=== PATIENT | male | born 1935 | race Hispanic/Latino ===

== ENCOUNTER 2018-03-03 20:01 | Emergency (ER) | payer MEDICARE, BC ==
[~2018-03-03] VITALS: Ht 165.1 cm; Wt 81.2 kg
[~2018-03-03 20:01] MED LIST: AMLODIPINE BESYL5 MG PO; ASPIRIN81 MG PO; ATORVASTATIN CA20 MG PO; CLOPIDOGREL75 MG PO; CRESTOR20 MG PO; FAMOTIDINE20 MG PO; FUROSEMIDE40 MG PO; HYDRALAZINE HCL25 MG PO; ISORDIL40 MG PO; LISINOPRIL10 MG PO; MAGNESIUM OXID400 MG PO; METOPROLOL TART25 MG PO; PAROXETINE HCL20 MG PO; POTASSIUM CHLO10 ME1 PO; PRAZOSIN HCL2 MG PO; QUETIAPINE FUMA25 MG PO; RISPERIDONE0.5 MG PO; SENEXON-S TABL1 EACH PO; SERTRALINE HCL50 MG PO; ULTRAM 50MG50 MG PO
[2018-03-03] MEDS ORDERED: SODIUM CHLORIDE 0.9% 1000ML 1,000 ML IV STA (20:07)
[2018-03-03] MEDS ORDERED: PANTOPRAZOLE 40 MG 10ML VIAL IV STA (20:07)
[2018-03-03] MEDS ORDERED: SODIUM CHLORIDE 0.9% 1000ML 1,000 ML ONE (20:10)
[2018-03-03] MEDS ORDERED: ACETAMINOPHEN 1000 MG/100 ML 100 ML IV ONE (20:10)
[2018-03-03 20:26] LABS: BASOPHILS % 0.1 % (0.0-1.0); HEMATOCRIT 37.4 % (38.2-49.6); HEMOGLOBIN 12.8 g/dL (14.0-18.0); LYMPHOCYTES # (AUTO) 0.2 (1.0-3.2); LYMPHOCYTES % 1.7 % (18.0-39.1); MEAN CORPUSCULAR HEMOGLOBIN 28.4 pg (28-32); MEAN CORPUSCULAR HGB CONC 34.2 g/dL (31-35); MEAN CORPUSCULAR VOLUME 83.1 fL (81-99); MONOCYTES # (AUTO) 0.6 (0.2-0.8); MONOCYTES % 4.9 % (4.4-11.3); NEUTROPHILS # (AUTO) 10.7 (2.1-6.9); NEUTROPHILS % 92.5 % (38.7-80.0); PLATELET COUNT 121 x10e3/uL (140-360); RED CELL DISTRIBUTION WIDTH 13.8 % (11.7-14.4)
[2018-03-03] MEDS ORDERED: ACETAMINOPHEN 1000 MG/100 ML IV PRN (20:30)
[2018-03-03 20:37] LABS: INR 1.04; PROTHROMBIN TIME 14.5 seconds (11.9-14.5)
[2018-03-03 20:38] LABS: PARTIAL THROMBOPLASTIN TIME 30.8 seconds (23.8-35.5)
[2018-03-03 20:48] LABS: ALANINE AMINOTRANSFERASE 41 IU/L (0-55); ALBUMIN 3.5 g/dL (3.5-5.0); ALBUMIN/GLOBULIN RATIO 1.2 (0.8-2.0); ALKALINE PHOSPHATASE 71 IU/L (40-150); AMYLASE 31 U/L (25-125); ANION GAP 12.8 mmol/L (8-16); BLOOD UREA NITROGEN 14 mg/dL (7-26); BUN/CREATININE RATIO 12 (6-25); CALCIUM 9.3 mg/dL (8.4-10.2); CARBON DIOXIDE 24 mmol/L (22-29); CHLORIDE 107 mmol/L (98-107); CREATINE KINASE 69 IU/L (30-200); CREATININE, SERUM 1.15 mg/dL (0.72-1.25); EST GLOMERULAR FILTRATION RATE > 60 ML/MIN (60-); GLUCOSE 128 mg/dL (74-118); LIPASE 14 U/L (8-78); MAGNESIUM 1.5 MG/DL (1.3-2.1); POTASSIUM 3.8 mmol/L (3.5-5.1); SODIUM 140 mmol/L (136-145)
[2018-03-03 20:53] LABS: B-TYPE NATRIURETIC PEPTIDE2 193.9 pg/mL (0-100)
[2018-03-03 21:08] LABS: THYROID STIMULATING HORMONE 0.782 uIU/mL (0.350-4.940)
[2018-03-03] MEDS ORDERED: VANCOMYCIN 1GM/NS 250 ML 250 ML IV ONE (21:30)
[2018-03-03] MEDS ORDERED: CEFEPIME HCL 2 GM VIAL IV SCH (21:30)
[2018-03-03 21:35] LABS: NEUTROPHILS % (MANUAL) 94 % (40-74); PLATELET ESTIMATE SLIGHTLY DECREASED; PLATELET MORPHOLOGY COMMENT NORMAL; RBC MORPHOLOGY COMMENT NORMAL
[2018-03-03 21:39] LABS: LYMPHOCYTES % (MANUAL) 1 % (19-48); MONOCYTES % (MANUAL) 5 % (3.4-9.0)
[2018-03-03 21:40] LABS: BILIRUBIN,URINE NEGATIVE (NEGATIVE); CLARITY,URINE CLEAR (CLEAR); COLOR,URINE YELLOW (YELLOW); KETONES,URINE NEGATIVE (NEGATIVE); LEUKOCYTE ESTERASE ,URINE NEGATIVE (NEGATIVE); NITRITE,URINE NEGATIVE (NEGATIVE); PROTEIN,URINE DIPSTICK NEGATIVE (NEGATIVE); URINE UROBILINOGEN 0.2 mg/dL (0.2 - 1)
[2018-03-03] MEDS ORDERED: CEFEPIME HCL 2 GM VIAL IV ONE (21:45)
--- NOTE | 2018-03-03 21:45 | Diagnostic Imaging Report ---
EXAMINATION: CHEST SINGLE (PORTABLE) INDICATION: Fever, sepsis COMPARISON: 11/26/2014 FINDINGS: TUBES and LINES: None. LUNGS: Lungs are well inflated. Lungs are clear. There is no evidence of pneumonia or pulmonary edema. PLEURA: No pleural effusion or pneumothorax. HEART AND MEDIASTINUM: Patient is status post CABG procedure. There are atherosclerotic calcifications within the aorta. BONES AND SOFT TISSUES: No acute osseous lesion. Soft tissues are unremarkable. UPPER ABDOMEN: No free air under the diaphragm. IMPRESSION: No acute thoracic abnormality. Signed by: Dr. Alexis Matute M.D. on 03/03/2018 9:42 PM
[2018-03-03 21:46] LABS: BACTERIA,URINE RARE /HPF; EPITHELIAL CELLS,URINE RARE /LPF; RBC,URINE 0-5 /HPF (0-5)
--- NOTE | 2018-03-03 21:52 | Diagnostic Imaging Report ---
Examination: CT CERVICAL SPINE WITHOUT CONTRAST HISTORY:Neck injury and pain. Fall. COMPARISON:02/17/[address] TECHNIQUE: Multidetector helical axial images were obtained without contrast from the foramen magnum to T1. Coronal and sagittal reformatted images were done. Bone and soft tissue windows were evaluated. Dose modulation, iterative reconstruction, and/or weight based adjustment of the mA/kV was utilized to reduce the radiation dose to as low as reasonably achievable. FINDINGS: Alignment:Normal alignment and lordosis. Vertebrae: Normal height and density. No acute fracture, infection or neoplasm. Disc space heights: Normal height. Caliber of spinal canal: Developmentally normal. Posterior fossa and craniocervical junction: Foramen magnum patent. No Chiari 1 malformation. Soft tissues: Left carotid artery stent. Degenerative changes: Unchanged diffuse disc osteophyte complex at C6-C7 with severe bilateral foramina narrowing. No canal stenosis. The remaining levels demonstrate no disc bulge/ herniation or canal stenosis. IMPRESSION: No new acute abnormalities when compared to prior cervical spine CT dated 02/17/2017. Signed by: Dr. Mariah Harvey M.D. on 03/03/2018 9:49 PM
--- NOTE | 2018-03-03 21:56 | Diagnostic Imaging Report ---
Examination: CT head without contrast Clinical Indication: Fall; head injury. Technique: Transaxial noncontrast images from the skull base through the vertex were obtained. Sagittal and coronal reformatted images were done. Dose modulation, iterative reconstruction, and/or weight based adjustment of the mA/kV was utilized to reduce the radiation dose to as low as reasonably achievable. Comparison: 02/17/[address] Findings: Scalp/skull: No abnormalities. Extra-axial spaces: No masses. No fluid collections. Brain sulci: Moderate volume loss. Ventricles: No hydrocephalus. Parenchyma: There are mild confluent areas of low-attenuation within subcortical and periventricular white matter, nonspecific, but could represent microvascular ischemic disease. 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 Punctate parenchymal calcification at the left superior parietal lobule, secondary to remote infection. No masses, hemorrhage, or acute or chronic cortical based vascular insults. Suprasellar region: No abnormalities. Craniocervical junction: The foramen magnum is patent. No Chiari one malformation. Incidental findings: Atherosclerotic calcification of the cavernous and supraclinoid internal carotid arteries. Impression: No new acute intracranial finding when compared to prior head CT dated 02/17/2017. Signed by: Dr. Mariah Harvey M.D. on 03/03/2018 9:53 PM
[2018-03-03 22:00] LABS: INFLUENZAE A&B ANTIGEN (RAPID) NEGATIVE (NEGATIVE); STREPTOCOCCUS GRP A ANTIGEN POSITIVE (NEGATIVE)
[2018-03-03] MEDS ORDERED: PENICILLIN G BENZATHINE LA 1.2 MU TBX IM STA (22:03)
[2018-03-03 22:16] VITALS: BP 134/69
== END 2018-03-03 23:38 | disposition home or self-care (01) ==
LOC: ER 20:01
DX: R50.9 Fever, unspecified (principal); R41.0 Disorientation, unspecified; J02.0 Streptococcal pharyngitis; Z87.891 Personal history of nicotine dependence
CPT/HCPCS: 36415; 70450; 71045; 72125; 80053; 81001; 82140; 82150; 82550; 82553; 83518; 83605; 83690; 83735; 83880; 84443; 84484; 85025; 85610; 85730; 87040; 87086; 87186; 87400; 93005; 96365; 96372; 96374; 99284; J0561; J0692; J3370; J7030

== ENCOUNTER 2018-03-15 14:47 | Emergency (ER) | payer MEDICARE, BC ==
[~2018-03-15] VITALS: Ht 165.1 cm; Wt 81.2 kg
--- OUTSIDE RECORDS SUMMARY | 2018-03-15 14:49 | XMS REPORT | Clinical Summary ---
Author Author [facility] Organization [facility] Address Unknown Phone Unavailable Care Team Providers Care Research Investigator Name Role Phone Christian Tanner MD PCP Allergies No Known Allergies Current Medications Prescription Sig. Disp. Refills Start End Date Status Date amLODIPine (NORVASC) 10 Take 10 mg by mouth Active mg tablet daily. lisinopril Take 40 mg by mouth Active (PRINIVIL,ZESTRIL) 40 mg daily. tablet clopidogrel (PLAVIX) 75 Take 75 mg by mouth Active mg tablet daily. aspirin (ECOTRIN) 81 MG Take 81 mg by mouth Active enteric coated tablet daily. senna (SENOKOT) 8.6 mg Take 1 tablet by mouth Active tablet daily. cyanocobalamin 1000 MCG Take 1,000 mcg by mouth Active tablet daily. atorvastatin (LIPITOR) 20 Take 20 mg by mouth Active MG tablet nightly. Default OP ins sertraline (ZOLOFT) 50 MG Take 50 mg by mouth Active tablet nightly. prazosin (MINIPRESS) 2 MG Take 2 mg by mouth Active capsule nightly. cholecalciferol, vitamin Take 4,000 Units by mouth Active D3, (VITAMIN D3) 2,000 daily. unit capsule capsule metoprolol tartrate Take 25 mg by mouth 2 Active (LOPRESSOR) 25 mg tablet (two) times a day. Active Problems Problem Noted Date Low back pain 12/17/2016 Social History Tobacco Use Types Packs/Day Years Used Date Never Smoker Alcohol Use Drinks/Week oz/Week Comments No Sex Assigned at Date Recorded Not on file Last Filed Vital Signs Not on file Plan of Treatment Health Maintenance Due Date Last Done Comments SHINGRIX VACCINE (#1) 1984 ZOSTER VACCINE 1994 PNEUMOCOCCAL 12/04/1999 POLYSACCHARIDE VACCINE AGE 65 AND OVER PNEUMOCOCCAL-13 12/04/1999 INFLUENZA VACCINE 12/27/2017 Results Not on fileafter 03/14/2017 Insurance Payer Benefit Subscriber ID Type Phone Address Plan / Group MEDICARE MEDICARE xxxxxxxxxx Medicare [place], [place] PART A AND B BCBS BCBS xxxxxxxxxxxx PPO [place] PPO/STEWART [place] PPO
[2018-03-15 17:08] LABS: CLARITY,URINE SL CLOUDY (CLEAR); COLOR,URINE YELLOW (YELLOW); KETONES,URINE TRACE (NEGATIVE); LEUKOCYTE ESTERASE ,URINE TRACE (NEGATIVE); NITRITE,URINE NEGATIVE (NEGATIVE); PROTEIN,URINE DIPSTICK TRACE (NEGATIVE)
[2018-03-15 17:09] LABS: BILIRUBIN,URINE NEGATIVE (NEGATIVE); URINE UROBILINOGEN 1 mg/dL (0.2 - 1)
[2018-03-15 17:19] LABS: BACTERIA,URINE MODERATE /HPF; EPITHELIAL CELLS,URINE MANY /LPF; MUCUS,URINE FEW (RARE)
[2018-03-15 17:21] LABS: BASOPHILS % 0.3 % (0.0-1.0); EOSINOPHILS # (AUTO) 0.2 (0.0-0.4); EOSINOPHILS % 1.4 % (0.0-6.0); HEMATOCRIT 39.3 % (38.2-49.6); HEMOGLOBIN 13.2 g/dL (14.0-18.0); LYMPHOCYTES % 9.1 % (18.0-39.1); MEAN CORPUSCULAR HEMOGLOBIN 28.1 pg (28-32); MEAN CORPUSCULAR HGB CONC 33.6 g/dL (31-35); MEAN CORPUSCULAR VOLUME 83.6 fL (81-99); MONOCYTES # (AUTO) 0.6 (0.2-0.8); MONOCYTES % 5.9 % (4.4-11.3); NEUTROPHILS # (AUTO) 8.9 (2.1-6.9); NEUTROPHILS % 82.6 % (38.7-80.0); PLATELET COUNT 296 x10e3/uL (140-360); RED CELL DISTRIBUTION WIDTH 13.3 % (11.7-14.4)
[2018-03-15 17:42] LABS: ALANINE AMINOTRANSFERASE 15 IU/L (0-55); ALBUMIN 3.5 g/dL (3.5-5.0); ALBUMIN/GLOBULIN RATIO 0.9 (0.8-2.0); ALKALINE PHOSPHATASE 97 IU/L (40-150); ANION GAP 17.6 mmol/L (8-16); BLOOD UREA NITROGEN 10 mg/dL (7-26); BUN/CREATININE RATIO 10 (6-25); CALCIUM 9.7 mg/dL (8.4-10.2); CARBON DIOXIDE 21 mmol/L (22-29); CHLORIDE 103 mmol/L (98-107); CREATININE, SERUM 1.01 mg/dL (0.72-1.25); EST GLOMERULAR FILTRATION RATE > 60 ML/MIN (60-); GLUCOSE 96 mg/dL (74-118); POTASSIUM 4.6 mmol/L (3.5-5.1); SODIUM 137 mmol/L (136-145)
--- NOTE | 2018-03-15 18:00 | Diagnostic Imaging Report ---
EXAMINATION: CHEST 2 VIEWS INDICATION: Right lower leg/foot swelling. Sepsis. ^SEPSIS ^Y COMPARISON: Chest radiograph 11/26/2014 and 03/03/2018 FINDINGS: PA and lateral views TUBES and LINES: None. LUNGS: Lungs are well inflated. Lungs are clear. There is no evidence of pneumonia or pulmonary edema. PLEURA: No pleural effusion or pneumothorax. HEART AND MEDIASTINUM: The cardiomediastinal silhouette is unremarkable. BONES AND SOFT TISSUES: No acute osseous lesion. Sternotomy wires and CABG clips. Soft tissues are unremarkable. UPPER ABDOMEN: No free air under the diaphragm. IMPRESSION: No acute thoracic abnormality. Signed by: DR. Dereck Greene MD on 03/15/2018 5:57 PM
[2018-03-15] MEDS ORDERED: KEFLEX500 MG PO (21:19)
[2018-03-15 21:52] VITALS: BP 121/85
[2018-05-10] MEDS ORDERED: GABAPENTIN100 MG PO (14:13)
[2018-05-10] MEDS ORDERED: LEVETIRACETAM500 MG PO (14:13)
== END 2018-03-15 21:56 | disposition home or self-care (01) ==
LOC: ER 14:47
DX: M79.661 Pain in right lower leg (principal); L03.115 Cellulitis of right lower limb
CPT/HCPCS: 36415; 71046; 80053; 81001; 83605; 83735; 85025; 87040; 93971; 99284

== ENCOUNTER → 2018-05-11 | Day surgery (SDC) | payer MEDICARE, BC ==
[2018-05-10 14:15] LABS: BASOPHILS % 0.3 % (0.0-1.0); EOSINOPHILS # (AUTO) 0.5 (0.0-0.4); EOSINOPHILS % 8.8 % (0.0-6.0); HEMATOCRIT 39.1 % (38.2-49.6); LYMPHOCYTES # (AUTO) 0.8 (1.0-3.2); MEAN CORPUSCULAR HEMOGLOBIN 27.8 pg (28-32); MEAN CORPUSCULAR HGB CONC 33.2 g/dL (31-35); MEAN CORPUSCULAR VOLUME 83.7 fL (81-99); MONOCYTES # (AUTO) 0.7 (0.2-0.8); MONOCYTES % 10.7 % (4.4-11.3); NEUTROPHILS # (AUTO) 4.1 (2.1-6.9); NEUTROPHILS % 66.6 % (38.7-80.0); PLATELET COUNT 163 x10e3/uL (140-360); RED BLOOD COUNT 4.67 x10e6/uL (4.3-5.7); RED CELL DISTRIBUTION WIDTH 14.2 % (11.7-14.4)
[2018-05-10 14:33] LABS: ALANINE AMINOTRANSFERASE 15 IU/L (0-55); ALBUMIN 3.3 g/dL (3.5-5.0); ALBUMIN/GLOBULIN RATIO 1.1 (0.8-2.0); ALKALINE PHOSPHATASE 85 IU/L (40-150); ANION GAP 12.3 mmol/L (8-16); BLOOD UREA NITROGEN 12 mg/dL (7-26); BUN/CREATININE RATIO 13 (6-25); CALCIUM 8.9 mg/dL (8.4-10.2); CARBON DIOXIDE 24 mmol/L (22-29); CHLORIDE 105 mmol/L (98-107); CHOL/HDL RATIO 2.5 (3.9-4.7); CHOLESTEROL 130 MD/DL (0-199); CREATININE, SERUM 0.94 mg/dL (0.72-1.25); EST GLOMERULAR FILTRATION RATE > 60 ML/MIN (60-); GLUCOSE 134 mg/dL (74-118); HDL CHOLESTEROL 51 MG/DL (40-60); LDL CHOLESTEROL 47 MG/DL (60-130); POTASSIUM 4.3 mmol/L (3.5-5.1); SODIUM 137 mmol/L (136-145); TRIGLYCERIDES 159 MG/DL (0-149)
[~2018-05-11] VITALS: Ht 165.1 cm; Wt 83.5 kg
[~2018-05-11] MED LIST changes: +FENTANYL CITRATE/PF 100MCG/2 ML INJ ONE; +GABAPENTIN100 MG PO; +HEPARIN SOD/SOD CHLORIDE 2,000 ML ONE; +IOPAMIDOL 370 MG/ML 200 ML INFUS..BTL INJ ONE; +KEFLEX500 MG PO; +LEVETIRACETAM500 MG PO; +LIDOCAINE HCL 2% LOCAL 20 ML VIAL ONE; +MIDAZOLAM HCL 2 MG/2 ML VIAL ONE; +SODIUM CHLORIDE 0.9% 1000ML 1,000 ML ONE
--- OUTSIDE RECORDS SUMMARY | 2018-05-11 11:51 | XMS REPORT | Clinical Summary ---
Author Author [facility] Organization [facility] Address Unknown Phone Unavailable Care Team Providers Care Brand Advisor Name Role Phone Christian Tanner MD PCP Allergies No Known Allergies Medications End Date Status Medication Sig Dispensed Refills Start Date Active amLODIPine (NORVASC) 10 Take 10 mg by 0 mg tablet mouth daily. Active lisinopril Take 40 mg by 0 (PRINIVIL,ZESTRIL) 40 mg mouth daily. tablet Active clopidogrel (PLAVIX) 75 Take 75 mg by 0 mg tablet mouth daily. Active aspirin (ECOTRIN) 81 MG Take 81 mg by 0 enteric coated tablet mouth daily. Active senna (SENOKOT) 8.6 mg Take 1 tablet 0 tablet by mouth daily. Active cyanocobalamin 1000 MCG Take 1,000 0 tablet mcg by mouth daily. Active atorvastatin (LIPITOR) 20 Take 20 mg by 0 MG tablet mouth nightly. Default OP ins Active sertraline (ZOLOFT) 50 MG Take 50 mg by 0 tablet mouth nightly. Active prazosin (MINIPRESS) 2 MG Take 2 mg by 0 capsule mouth nightly. Active cholecalciferol, vitamin Take 4,000 0 D3, (VITAMIN D3) 2,000 Units by unit capsule capsule mouth daily. Active metoprolol tartrate Take 25 mg by 0 (LOPRESSOR) 25 mg tablet mouth 2 (two) times a day. Active Problems Problem Noted Date Low back pain 12/17/2016 Social History Date Tobacco Use Types Packs/Day Years Used Never Smoker Alcohol Use Drinks/Week oz/Week Comments No Sex Assigned at Date Recorded Not on file Industry Job Start Date Occupation Not on file Not on file Not on file Travel End Travel History Travel Start No recent travel history available. Last Filed Vital Signs Not on file Plan of Treatment Health Maintenance Due Date Last Done Comments SHINGLES VACCINES (1 of 1984 2) PNEUMOCOCCAL 12/04/1999 POLYSACCHARIDE VACCINE AGE 65 AND OVER PNEUMOCOCCAL-13 12/04/1999 INFLUENZA VACCINE 12/27/2017 Results Not on fileafter 05/10/2017 Insurance Payer Benefit Subscriber ID Type Phone Address Plan / Group MEDICARE MEDICARE xxxxxxxxxx Medicare [place], [place] PART A AND B BCBS BCBS xxxxxxxxxxxx PPO CHO[employer] PPO/STEWART L EMPL PPO Advance Directives Patient has advance care planning documents, and code status on file. For more i nformation, please contact: Ayaz Rajan [address] [place] [address] Date Inactivated Comments Code Status Date Activated 12/23/2016 10:39 PM DNR 12/21/2016 10:38 PM Code Status decision reached by: Legal Surrogate Name of Surrogate: Julee Surrogate Relation: 3. Adult Child/Children
[2018-05-11 17:10] VITALS: BP 138/80
--- NOTE | 2018-05-11 17:24 | Operative Report ---
DATE OF PROCEDURE: May 11, 2018 INDICATIONS: Coronary artery disease with abnormal stress test. PROCEDURES PERFORMED 1. Left heart catheterization. 2. Selective coronary angiography. 3. Selective cannulation of 1 arterial and 2 venous bypass conduits. 4. Deployment of right groin Vascade closure device. COMPLICATIONS: None. RECOMMENDATIONS: Medical therapy including assessment for AICD placement for primary prevention. Access obtained in the right femoral artery. A 6-Cymraes sheath was placed. Diagnostic coronary angiogram revealed heavily calcified left main with patent stent. Left anterior descending artery, right coronary artery, and circumflex were completely occluded. Saphenous vein bypass graft to obtuse marginal branch had 50% terminal stenosis, 50% stenosis in saphenous vein bypass graft to 1st diagonal. Left internal mammary artery to left anterior descending artery was widely patent. Right groin repaired using Vascade closer device. Patient discharged home same day. Job#: [id number] CQ
[2018-05-11 17:25] VITALS: BP 119/75
[2018-05-11 17:55] VITALS: BP 136/78
[2018-05-11 18:10] VITALS: BP 134/71
== END | disposition home or self-care (01) ==
LOC: CATH LAB 11:49
PROVIDERS: ATTEND Radiology Diagnostic Radiology
DX: I25.118 Atherosclerotic heart disease of native coronary artery with other forms of angina pectoris (principal); I25.718 Atherosclerosis of autologous vein coronary artery bypass graft(s) with other forms of angina pectoris; I25.82 Chronic total occlusion of coronary artery; I25.84 Coronary atherosclerosis due to calcified coronary lesion; Z95.5 Presence of coronary angioplasty implant and graft; R60.0 Localized edema; R94.39 Abnormal result of other cardiovascular function study; I10 Essential (primary) hypertension; F43.10 Post-traumatic stress disorder, unspecified; Z01.812 Encounter for preprocedural laboratory examination
CPT/HCPCS: 36415; 80053; 80061; 85025; 93455; C1760; C1769; J2001; J2250; J7030; Q9967

== ENCOUNTER 2018-12-19 12:32 | Emergency (ER) | payer MEDICARE, BC ==
[~2018-12-19] VITALS: Ht 165.1 cm; Wt 83.5 kg
[~2018-12-19 12:32] MED LIST changes: -FENTANYL CITRATE/PF 100MCG/2 ML INJ ONE; -HEPARIN SOD/SOD CHLORIDE 2,000 ML ONE; -IOPAMIDOL 370 MG/ML 200 ML INFUS..BTL INJ ONE; -LIDOCAINE HCL 2% LOCAL 20 ML VIAL ONE; -MIDAZOLAM HCL 2 MG/2 ML VIAL ONE; -SODIUM CHLORIDE 0.9% 1000ML 1,000 ML ONE
--- OUTSIDE RECORDS SUMMARY | 2018-12-19 12:36 | XMS REPORT | Summary of Care ---
Author Author [facility] Organization [facility] Address Unknown Phone Unavailable Encounter HQ Michelle(LOBO) [id number] Date(s): 07/05/18 - 07/05/18 [facility] [address] [place] [address]- Discharge Disposition: Home or Self Care Attending Physician: Man Ortega MD Referring Physician: Man Ortega MD Vital Signs 1 2 3 Most recent to oldest [Reference Range]: 165.1 cm (07/04/18 9:49 AM) Height 97.7 DegF (07/05/18 10:19 AM) 97.9 DegF (07/05/18 8:05 AM) 98.5 DegF (07/04/18 10:05 AM) Temperature Oral [96.4-99.1 DegF] 137/62 mmHg (07/05/18 12:44 PM) 127/60 mmHg (07/05/18 12:14 PM) 130/63 mmHg (07/05/18 11:44 AM) Blood Pressure [90-140/60-90 mmHg] 15 BRMIN (07/05/18 12:44 PM) 22 BRMIN *HI* (07/05/18 12:14 PM) 20 BRMIN (07/05/18 11:44 AM) Respiratory Rate [14-20 BRMIN] 71 bpm (07/04/18 10:05 AM) Peripheral Pulse Rate [60-100 bpm] 84.091 kg (07/04/18 9:49 AM) Weight 30.85 m2 (07/04/18 9:49 AM) Body Mass Index Problem List Condition Effective Dates Status Health Status Informant Weakness Active generalized(Confirme d) Dementia with Resolved behavioral disturbance(Confirme d) Oxygen Active dependent(Confirmed) 1 Depression(Confirmed Active ) Hallucination(Confir Resolved med) [place] (hard of Active hearing)(Confirmed)2 HTN Active (hypertension)(Confi rmed) Mobility Active impaired(Confirmed) Lack of Active coordination(Confirm ed) Poor circulation of Active extremity(Confirmed) 3 PTSD (post-traumatic Active stress disorder)(Confirmed) Unknown(Confirmed) Resolved Vision Active impairment(Confirmed )4 1occ at home 2left deaf 3RLE 4right Allergies, Adverse Reactions, Alerts Substance Reaction Severity Status NKDA Active Medications acetaminophen-codeine #3 1 tab, Route: PO, Drug Form: TAB, Dosing Weight 84.091, kg, Q4H, PRN Pain Score 4-6, Start date: 07/05/18 10:03:00 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 (Same as: Tylenol with Codeine # 3) Start Date: 07/05/18 Stop Date: 07/05/18 Status: Discontinued amLODIPine 10 mg oral tablet 10 mg=1 tab, PO, Daily, # 90 tab, 1 Refill(s) Start Date: 07/04/18 Status: Ordered atorvastatin 20 mg, PO, Bedtime, 0 Refill(s) Start Date: 07/04/18 Status: Ordered clopidogrel 75 mg oral tablet 75 mg=1 tab, PO, Daily, # 90 tab, 3 Refill(s) Start Date: 07/04/18 Status: Ordered furosemide 40 mg oral tablet 40 mg=1 tab, PO, Daily, # 90 tab, 1 Refill(s) Start Date: 07/04/18 Status: Ordered gabapentin 100 mg oral capsule 100 mg=1 cap, PO, BID, # 90 cap, 1 Refill(s) Start Date: 07/04/18 Status: Ordered levETIRAcetam 1000 mg oral tablet 1,000 mg=1 tab, PO, BID, # 60 tab, 2 Refill(s) Start Date: 07/04/18 Status: Ordered metoprolol 25 mg oral tablet, extended release 25 mg=1 tab, PO, Daily, # 90 tab, 3 Refill(s) Start Date: 07/04/18 Status: Ordered prazosin 2 mg oral capsule 2 mg=1 cap, PO, Bedtime, 0 Refill(s) Start Date: 07/04/18 Status: Ordered QUEtiapine 50 mg oral tablet 100 mg=2 tab, PO, Bedtime, # 90 tab, 0 Refill(s) Start Date: 07/04/18 Stop Date: 10/02/18 Status: Ordered sertraline 50 mg oral tablet 50 mg=1 tab, PO, Bedtime, # 90 tab, 0 Refill(s) Start Date: 07/04/18 Status: Ordered Vitamin B12 1000 mcg oral tablet 1,000 microgram=1 tab, PO, Daily, # 100 tab, 3 Refill(s) Start Date: 07/04/18 Status: Ordered Vitamin D3 2000 intl units oral capsule 2,000 IntlUnit=1 cap, PO, Daily, # 100 cap, 3 Refill(s) Start Date: 07/04/18 Status: Ordered Results ELECTROLYTES Most recent to 1 oldest [Reference Range]: Sodium Lvl [135-145 141 mEq/L mEq/L] (07/04/18 10:39 AM) Potassium Lvl 3.9 mEq/L [3.5-5.1 mEq/L] (07/04/18 10:39 AM) Chloride Lvl [95-109 107 mEq/L mEq/L] (07/04/18 10:39 AM) CO2 [24-32 mEq/L] 24 mEq/L (07/04/18 10:39 AM) AGAP [10.0-20.0 13.9 mEq/L mEq/L] (07/04/18 10:39 AM) CHEM PANEL Most recent to 1 oldest [Reference Range]: Creatinine Lvl 1.21 mg/dL [0.50-1.40 mg/dL] (07/04/18 10:39 AM) eGFR 55 mL/min/1.73m2 1 *NA* (07/04/18 10:39 AM) BUN [7-22 mg/dL] 17 mg/dL (07/04/18 10:39 AM) Glucose Lvl [70-99 94 mg/dL mg/dL] (07/04/18 10:39 AM) Calcium Lvl 9.2 mg/dL [8.5-10.5 mg/dL] (07/04/18 10:39 AM) 1Result Comment: The eGFR is calculated using the CKD-EPI formula. In most young, healthy individuals the eGFR will be >90 mL/min/1.73m2. The eGFR declines with age. An eGFR of 60-89 may be normal in some populations, particularly the elderly, for whom the CKD-EPI formula has not been extensively validated. Use of the eGFR is not recommended in the following populations: Individuals with unstable creatinine concentrations, including patients and those with serious co-morbid conditions. Patients with extremes in muscle mass or diet. The data above are obtained from the National Kidney Disease Education Program ( NKDEP) which additionally recommends that when the eGFR is used in patients with extremes of body mass index for purposes of drug dosing, the eGFR should be mul tiplied by the estimated BMI. HEMATOLOGY Most recent to 1 oldest [Reference Range]: WBC [3.7-10.4 K/CMM] 6.7 K/CMM (07/04/18 10:39 AM) RBC [4.70-6.10 5.16 M/CMM M/CMM] (07/04/18 10:39 AM) Hgb [14.0-18.0 g/dL] 14.2 g/dL (07/04/18 10:39 AM) Hct [42.0-54.0 %] 41.7 % *LOW* (07/04/18 10:39 AM) MCV [80.0-94.0 fL] 81.0 fL (07/04/18 10:39 AM) MCH [27.0-31.0 pg] 27.6 pg (07/04/18 10:39 AM) MCHC [32.0-36.0 34.1 g/dL g/dL] (07/04/18 10:39 AM) RDW [11.5-14.5 %] 15.2 % *HI* (07/04/18 10:39 AM) MPV [7.4-10.4 fL] 7.8 fL (07/04/18 10:39 AM) Platelet [133-450 154 K/CMM K/CMM] (07/04/18 10:39 AM) Segs [45.0-75.0 %] 72.3 % (07/04/18 10:39 AM) Lymphocytes 13.6 % [20.0-40.0 %] *LOW* (07/04/18 10:39 AM) Monocytes [2.0-12.0 8.9 % %] (07/04/18 10:39 AM) Eosinophils [0.0-4.0 4.6 % %] *HI* (07/04/18 10:39 AM) Basophils [0.0-1.0 0.6 % %] (07/04/18 10:39 AM) Neutrophils # 4.8 K/CMM [1.5-8.1 K/CMM] (07/04/18 10:39 AM) Lymphocytes # 0.9 K/CMM [1.0-5.5 K/CMM] *LOW* (07/04/18 10:39 AM) Monocytes # [0.0-0.8 0.6 K/CMM K/CMM] (07/04/18 10:39 AM) Eosinophils # 0.3 K/CMM [0.0-0.5 K/CMM] (07/04/18 10:39 AM) PT [12.0-14.7 12.0 seconds seconds] (07/04/18 10:39 AM) INR [0.85-1.17] 0.90 (07/04/18 10:39 AM) PTT [22.9-35.8 29.2 seconds seconds] (07/04/18 10:39 AM) Immunizations No data available for this section Procedures Procedure Date Related Diagnosis Body Site Status Back fusion Completed CABG x 4 - Coronary artery bypass grafts x 4 Completed Cholecystectomy Completed Social History Social History Type Response Smoking Status Never smoker; Ready to change: No; Concerns about tobacco use in household: No; Exposure to Tobacco Smoke None; Cigarette Smoking Last 365 Days No; Reg Smoking Cessation Counseling No entered on: 07/04/18 Assessment and Plan No data available for this section
--- OUTSIDE RECORDS SUMMARY | 2018-12-19 12:36 | XMS REPORT | Summary of Care ---
Author Organization Unknown Address Unknown Phone Unavailable Encounter HQ Michelle(LOBO) [id number] Date(s): 04/02/14 - 04/02/14 [facility] [address] [place], [place] [id number] [place] [address] Discharge Diagnosis: Fall from standing Discharge Diagnosis: Closed head injury Discharge Disposition: Home Physician Attending: Otf Castillo MD Reason for Visit FALL Vital Signs 1 2 3 Most recent to oldest [Reference Range]: 177.8 cm (04/02/14 8:37 AM) Height 98.1 DegF (04/02/14 8:37 AM) Temperature Oral [96.4-99.1 DegF] 127 mmHg (04/02/14 11:37 AM) 141 mmHg *HI* (04/02/14 10:57 AM) 123 mmHg (04/02/14 8:37 AM) Systolic Blood Pressure [90-140 mmHg] 67 mmHg (04/02/14 11:37 AM) 69 mmHg (04/02/14 10:57 AM) 65 mmHg (04/02/14 8:37 AM) Diastolic Blood Pressure [60-90 mmHg] 17 BRMIN (04/02/14 11:37 AM) 18 BRMIN (04/02/14 10:57 AM) 20 BRMIN (04/02/14 8:37 AM) Respiratory Rate [14-20 BRMIN] 55 bpm *LOW* (04/02/14 11:37 AM) 54 bpm *LOW* (04/02/14 10:57 AM) 71 bpm (04/02/14 8:37 AM) Peripheral Pulse Rate [60-100 bpm] 72.727 kg (04/02/14 8:37 AM) Weight 23.01 m2 (04/02/14 8:37 AM) Body Mass Index Problem List Condition Effective Dates Status Health Status Informant Dementia with Resolved behavioral disturbance(Confirme d) Depression(Confirmed Resolved ) Hallucination(Confir Resolved med) HTN Resolved (hypertension)(Confi rmed) Lack of Resolved coordination(Confirm ed) PTSD (post-traumatic Resolved stress disorder)(Confirmed) Unknown(Confirmed) Resolved Allergies, Adverse Reactions, Alerts Substance Reaction Severity Status NKDA Active Medications No data available for this section Medications Administered During Your Visit No data available for this section Immunizations No data available for this section
--- OUTSIDE RECORDS SUMMARY | 2018-12-19 12:36 | XMS REPORT | Clinical Summary ---
Author Author [facility] Organization [facility] Address Unknown Phone Unavailable Care Team Providers Care Paid Search Manager Name Role Phone Christian Tanner MD PCP [...] Due Date Last Done Comments SHINGLES VACCINES (#1) 1984 65+ PNEUMOCOCCAL VACCINE 12/04/1999 (1 of 2 - PCV13) INFLUENZA VACCINE 12/27/2018 Results Not on fileafter 12/18/2017 Insurance Type Payer Benefit Subscriber ID Effective Phone Address Plan / Dates Group Medicare MEDICARE MEDICARE xxxxxxxxxx 1999-P [place], PART A AND resent [place] B PPO BCBS BCBS xxxxxxxxxxxx 2015-P CHOICE resent PPO/STEWART [employer] PPO Advance Directives Patient has advance care planning documents, and code status on file. For more i nformation, please contact: Ayaz Rajan [address] [place] [address] Date Inactivated Comments Code Status Date Activated 12/23/2016 10:39 PM DNR 12/21/2016 10:38 PM Code Status decision reached by: Legal Surrogate Name of Surrogate: Julee Surrogate Relation: 3. Adult Child/Children
--- OUTSIDE RECORDS SUMMARY | 2018-12-19 12:36 | XMS REPORT | Continuity of Care Document ---
Author Author [facility] Organization [facility] Address Unknown Phone Unavailable Care Team Providers Care Sticker On Name Role Phone [facility] [place] Unavailable Unavailable Problems Problem Status Onset Date Classification Date Reported Comments Source DUAL CHAMBER ICD IMPLANT Active 06/20/2018 [facility] Chest pain Active 09/10/2014 Problem 03/04/2018 [facility] Dyspnea Active 09/10/2014 Problem 03/04/2018 [facility] Discharge Diagnosis: Fall from standing 04/02/2014 04/05/2014 [facility] Discharge Diagnosis: Closed head injury 04/02/2014 04/05/2014 [facility] FALL Active 04/02/2014 [facility] Weakness generalized Active Problem 07/07/2018 [facility] Dementia with behavioral disturbance Resolved Problem 07/07/2018 [facility] Oxygen dependent1 Active Problem 07/07/2018 occ at home [facility] Depression Active Problem 07/07/2018 [facility] Hallucination Resolved Problem 07/07/2018 [facility] DOUGLAS (Confirmed)2 Active Problem 07/07/2018 left deaf [facility] HTN (Confirmed) Active Problem 07/07/2018 [facility] Mobility impaired Active Problem 07/07/2018 [facility] Lack of coordination Active Problem 07/07/2018 [facility] Poor circulation of extremity3 Active Problem 07/07/2018 RLE [facility] PTSD (Confirmed) Active Problem 07/07/2018 [facility] Unknown Resolved Problem 07/07/2018 [facility] Vision impairment4 Active Problem 07/07/2018 right [facility] Medications Medication Details Route Status Patient Instructions Ordering Provider Order Date Source acetaminophen-codeine #3 1 tab, Route: PO, Drug Form: TAB, Dosing Weight 84.091, kg, Q4H, PRN Pain Score 4-6, Start date: 07/05/18 10:03:00 [employer], Duration: 30 day, Stop date: 08/04/18 10:02:00 CSTNotes: Do not exceed 4gm/day of acetaminophen. (Same as: Tylenol with Codeine # 3) Inactive 07/05/2018 [facility] metoprolol 25 mg oral tablet, extended release 25 mg=1 tab, PO, Daily, # 90 tab, 3 Refill(s) Active 07/04/2018 [facility] Furosemide 40 MG Oral Tablet 40 mg=1 tab, PO, Daily, # 90 tab, 1 Refill(s) Active 07/04/2018 [facility] gabapentin 100 MG Oral Capsule 100 mg=1 cap, PO, BID, # 90 cap, 1 Refill(s) Active 07/04/2018 [facility] Vitamin D3 2000 intl units oral capsule 2,000 IntlUnit=1 cap, PO, Daily, # 100 cap, 3 Refill(s) Active 07/04/2018 [facility] Levetiracetam 1000 MG Oral Tablet 1,000 mg=1 tab, PO, BID, # 60 tab, 2 Refill(s) Active 07/04/2018 [facility] QUEtiapine 50 mg oral tablet 100 mg=2 tab, PO, Bedtime, # 90 tab, 0 Refill(s) Active 07/04/2018 [facility] prazosin 2 mg oral capsule 2 mg=1 cap, PO, Bedtime, 0 Refill(s) Active 07/04/2018 [facility] sertraline 50 mg oral tablet 50 mg=1 tab, PO, Bedtime, # 90 tab, 0 Refill(s) Active 07/04/2018 [facility] atorvastatin 20 mg, PO, Bedtime, 0 Refill(s) Active 07/04/2018 [facility] Vitamin B12 1000 mcg oral tablet 1,000 microgram=1 tab, PO, Daily, # 100 tab, 3 Refill(s) Active 07/04/2018 [facility] clopidogrel 75 mg oral tablet 75 mg=1 tab, PO, Daily, # 90 tab, 3 Refill(s) Active 07/04/2018 [facility] amLODIPine 10 mg oral tablet 10 mg=1 tab, PO, Daily, # 90 tab, 1 Refill(s) Active 07/04/2018 [facility] Famotidine 20 Mg Tab, 20 Mg Oral Twice A Day Active 12/08/2016 [facility] Hydralazine Hcl 25 Mg Tab, 25 Mg Oral Three Times A Day Active 12/08/2016 [facility] Isosorbide Dinitrate (Isordil) 40 Mg Tablet, 20 Mg Oral Three Times A Day Active 12/08/2016 [facility] Metoprolol Tartrate 25 Mg Tablet, 25 Mg Oral Twice A Day Active 12/08/2016 [facility] Furosemide 40 Mg Tablet, 40 Mg Oral Daily Active 11/29/2014 [facility] Magnesium Oxide 400 Mg Tablet, 400 Mg Oral Daily Active 11/29/2014 [facility] Paroxetine Hcl 20 Mg Tablet, 20 Mg Oral Daily Active 11/29/2014 [facility] Potassium Chloride 10 Meq Tab.er.prt, 10 Meq Oral Daily Active 11/29/2014 [facility] Quetiapine Fumarate 25 Mg Tablet, 25 Mg Oral Daily Active 11/29/2014 [facility] Risperidone 0.5 Mg Tablet, 0.5 Mg Oral Daily Active 11/29/2014 [facility] Rosuvastatin Calcium (Crestor) 20 Mg Tablet, 20 Mg Oral Daily Active 11/29/2014 [facility] Prazosin Hcl 2 Mg Capsule, 2 Mg Oral Daily Active 09/12/2014 [facility] Amlodipine Besylate 5 Mg Tablet Daily Active [facility] Aspirin 81 Mg Tab.chew Daily Active [facility] Atorvastatin Calcium 20 Mg Tablet Bedtime Active [facility] Clopidogrel Bisulfate (Clopidogrel) 75 Mg Tablet Daily Active [facility] Lisinopril 10 Mg Tablet Daily Active [facility] Prazosin Hcl 2 Mg Capsule Daily Active [facility] Quetiapine Fumarate 25 Mg Tablet Daily Active [facility] Sennosides/Docusate Sodium (Senexon-S Tablet) 1 Each Tablet Daily Active [facility] Sertraline Hcl 50 Mg Tablet Daily Active [facility] Tramadol Hcl (Ultram 50MG*) 50 Mg Tab Every 6 Hours as needed for Pain Active [facility] Allergies, Adverse Reactions, Alerts No Known Medication Allergies Immunizations No Data Provided for This Section Results Order Name Results Value Reference Range Date Interpretation Comments Source CHEM PANEL eGFR 55 07/04/2018 Result Comment: The eGFR is calculated using the [...] from the National Kidney Disease Education Program (NKDEP) which additionally recommends that when the eGFR is used in patients with extremes of body mass index for purposes of drug dosing, the eGFR should be multiplied by the estimated BMI. [facility] CHEM PANEL CO2 24 24 - 32 07/04/2018 [facility] CHEM PANEL Calcium Lvl 9.2 8.5 - 10.5 07/04/2018 [facility] CHEM PANEL Glucose Lvl 94 70 - 99 07/04/2018 [facility] CHEM PANEL Creatinine Lvl 1.21 0.50 - 1.40 07/04/2018 [facility] CHEM PANEL BUN 17 7 - 22 07/04/2018 [facility] CHEM PANEL Potassium Lvl 3.9 3.5 - 5.1 07/04/2018 [facility] CHEM PANEL Sodium Lvl 141 135 - 145 07/04/2018 [facility] CHEM PANEL Chloride Lvl 107 95 - 109 07/04/2018 [facility] CHEM PANEL AGAP 13.9 10.0 - 20.0 07/04/2018 [facility] Lymphocytes # 0.9 1.0 - 5.5 07/04/2018 [facility] HEMATOLOGY Neutrophils # 4.8 1.5 - 8.1 07/04/2018 [facility] HEMATOLOGY Eosinophils # 0.3 0.0 - 0.5 07/04/2018 [facility] HEMATOLOGY Monocytes # 0.6 0.0 - 0.8 07/04/2018 [facility] HEMATOLOGY Lymphocytes 13.6 20.0 - 40.0 07/04/2018 [facility] HEMATOLOGY Segs 72.3 45.0 - 75.0 07/04/2018 [facility] Monocytes 8.9 2.0 - 12.0 07/04/2018 [facility] HEMATOLOGY Basophils 0.6 0.0 - 1.0 07/04/2018 [facility] Eosinophils 4.6 0.0 - 4.0 07/04/2018 [facility] MCHC 34.1 32.0 - 36.0 07/04/2018 [facility] MCH 27.6 27.0 - 31.0 07/04/2018 [facility] Platelet 154 133 - 450 07/04/2018 [facility] RDW 15.2 11.5 - 14.5 07/04/2018 [facility] MPV 7.8 7.4 - 10.4 07/04/2018 [facility] MCV 81.0 80.0 - 94.0 07/04/2018 [facility] RBC 5.16 4.70 - 6.10 07/04/2018 [facility] Hgb 14.2 14.0 - 18.0 07/04/2018 [facility] WBC 6.7 3.7 - 10.4 07/04/2018 [facility] Hct 41.7 42.0 - 54.0 07/04/2018 [facility] PTT 29.2 22.9 - 35.8 07/04/2018 [facility] PT 12.0 12.0 - 14.7 07/04/2018 [facility] INR 0.90 0.85 - 1.17 07/04/2018 [facility] Automated urine sediment leukocyte count by microscopy (number/high power field) Automated urine sediment leukocyte count by microscopy (number/high power field) NONE 0 - 5 03/03/2018 [facility] Bacteria detection in urine sediment by light microscopy Bacteria detection in urine sediment by light microscopy RARE NONE 03/03/2018 [facility] Epithelial cells detection in urine sediment by light microscopy Epithelial cells detection in urine sediment by light microscopy RARE NONE 03/03/2018 [facility] Erythrocytes detection in urine sediment by light microscopy Erythrocytes detection in urine sediment by light microscopy <5 0 - 5 03/03/2018 [facility] Influenza virus A and B antigen identification by immunofluorescence Influenza virus A and B antigen identification by immunofluorescence NEGATIVE NEGATIVE 03/03/2018 [facility] Specific gravity of Urine by Test strip Specific gravity of Urine by Test strip 1.010 1.010 - 1.025 03/03/2018 [facility] Streptococcus pyogenes antigen detection in throat Streptococcus pyogenes antigen detection in throat POSITIVE NEGATIVE 03/03/2018 [facility] Urine clarity Urine clarity CLEAR CLEAR 03/03/2018 [facility] Urine color determination Urine color determination YELLOW YELLOW 03/03/2018 [facility] Urine erythrocytes detection Urine erythrocytes detection NEGATIVE NEGATIVE 03/03/2018 [facility] Urine glucose detection Urine glucose detection NEGATIVE NEGATIVE 03/03/2018 [facility] Urine ketones detection by automated test strip Urine ketones detection by automated test strip NEGATIVE NEGATIVE 03/03/2018 [facility] Urine leukocyte esterase detection by dipstick Urine leukocyte esterase detection by dipstick NEGATIVE NEGATIVE 03/03/2018 [facility] Urine nitrite detection Urine nitrite detection NEGATIVE NEGATIVE 03/03/2018 [facility] Urine pH measurement by automated test strip Urine pH measurement by automated test strip 7 5 - 7 03/03/2018 [facility] Urine protein measurement by test strip (mass/volume) Urine protein measurement by test strip (mass/volume) NEGATIVE NEGATIVE 03/03/2018 [facility] Urine total bilirubin measurement (mass/volume) Urine total bilirubin measurement (mass/volume) NEGATIVE NEGATIVE 03/03/2018 [facility] Urine urobilinogen measurement by test strip (mass/volume) Urine urobilinogen measurement by test strip (mass/volume) 0.2 0.2 - 1 03/03/2018 [facility] Activated partial thromboplastin time (aPTT) in platelet poor plasma bycoagulation assay Activated partial thromboplastin time (aPTT) in platelet poor plasma bycoagulation assay 30.8 23.8 - 35.5 03/03/2018 [facility] Automated blood basophil count (count/volume) Automated blood basophil count (count/volume) 0.0 0.0 - 0.1 03/03/2018 [facility] Automated blood basophil count as percentage of total leukocytes Automated blood basophil count as percentage of total leukocytes 0.1 0.0 - 1.0 03/03/2018 [facility] Automated blood eosinophil count Automated blood eosinophil count 0.0 0.0 - 0.4 03/03/2018 [facility] Automated blood eosinophil count as percentage of total leukocytes Automated blood eosinophil count as percentage of total leukocytes 0.0 0.0 - 6.0 03/03/2018 [facility] Automated blood hematocrit (volume fraction) Automated blood hematocrit (volume fraction) 37.4 38.2 - 49.6 03/03/2018 [facility] Automated blood lymphocyte count as percentage ot total leukocytes Automated blood lymphocyte count as percentage ot total leukocytes 1.7 18.0 - 39.1 03/03/2018 [facility] Automated blood monocyte count as percentage of total leukocytes Automated blood monocyte count as percentage of total leukocytes 4.9 4.4 - 11.3 03/03/2018 [facility] Automated blood neutrophil count Automated blood neutrophil count 10.7 2.1 - 6.9 03/03/2018 [facility] Automated blood platelet count (count/volume) Automated blood platelet count (count/volume) 121 140 - 360 03/03/2018 [facility] Automated blood segmented neutrophil count as percentage of total leukocytes Automated blood segmented neutrophil count as percentage of total leukocytes 92.5 38.7 - 80.0 03/03/2018 [facility] Automated erythrocyte mean corpuscular hemoglobin (mass per erythrocyte) Automated erythrocyte mean corpuscular hemoglobin (mass per erythrocyte) 28.4 28 - 32 03/03/2018 [facility] Automated erythrocyte mean corpuscular hemoglobin concentration measurement (mass/volume) Automated erythrocyte mean corpuscular hemoglobin concentration measurement (mass/volume) 34.2 31 - 35 03/03/2018 [facility] Automated erythrocyte mean corpuscular volume Automated erythrocyte mean corpuscular volume 83.1 81 - 99 03/03/2018 [facility] Blood erythrocytes automated count (number/volume) Blood erythrocytes automated count (number/volume) 4.50 4.3 - 5.7 03/03/2018 [facility] Blood hemoglobin measurement (moles/volume) Blood hemoglobin measurement (moles/volume) 12.8 14.0 - 18.0 03/03/2018 [facility] Blood leukocytes automated count (number/volume) Blood leukocytes automated count (number/volume) 11.56 4.8 - 10.8 03/03/2018 [facility] Blood lymphocytes count (number/volume) Blood lymphocytes count (number/volume) 0.2 1.0 - 3.2 03/03/2018 [facility] Blood monocytes automated count (number/volume) Blood monocytes automated count (number/volume) 0.6 0.2 - 0.8 03/03/2018 [facility] Blood platelets count by estimate (number/volume) Blood platelets count by estimate (number/volume) SLIGHTLY DECREASED 03/03/2018 [facility] Estimated glomerular filtration rate (GFR) determination Estimated glomerular filtration rate (GFR) determination >60 60 03/03/2018 [facility] Glucose measurement Glucose measurement 128 74 - 118 03/03/2018 [facility] INR in Platelet poor plasma by Coagulation assay INR in Platelet poor plasma by Coagulation assay 1.04 03/03/2018 [facility] Manual blood lymphocytes/100 leukocytes Manual blood lymphocytes/100 leukocytes 1 19 - 48 03/03/2018 [facility] Manual blood monocytes/100 leukocytes Manual blood monocytes/100 leukocytes 5 3.4 - 9.0 03/03/2018 [facility] Manual blood neutrophils/100 leukocytes Manual blood neutrophils/100 leukocytes 94 40 - 74 03/03/2018 [facility] Plasma globulin measurement (mass/volume) Plasma globulin measurement (mass/volume) 2.9 2.3 - 3.5 03/03/2018 [facility] Platelet morphology Platelet morphology NORMAL 03/03/2018 [facility] Prothrombin time (PT) in platelet poor plasma by coagulation assay Prothrombin time (PT) in platelet poor plasma by coagulation assay 14.5 11.9 - 14.5 03/03/2018 [facility] RBC morphology RBC morphology NORMAL 03/03/2018 [facility] Serum or plasma alanine aminotransferase measurement (enzymatic activity/volume) Serum or plasma alanine aminotransferase measurement (enzymatic activity/volume) 41 0 - 55 03/03/2018 [facility] Serum or plasma albumin measurement (mass/volume) Serum or plasma albumin measurement (mass/volume) 3.5 3.5 - 5.0 03/03/2018 [facility] Serum or plasma albumin/globulin mass ratio Serum or plasma albumin/globulin mass ratio 1.2 0.8 - 2.0 03/03/2018 [facility] Serum or plasma alkaline phosphatase measurement (enzymatic activity/volume) Serum or plasma alkaline phosphatase measurement (enzymatic activity/volume) 71 40 - 150 03/03/2018 [facility] Serum or plasma amylase measurement (enzymatic activity/volume) Serum or plasma amylase measurement (enzymatic activity/volume) 31 25 - 125 03/03/2018 [facility] Serum or plasma anion gap Serum or plasma anion gap 12.8 8 - 16 03/03/2018 [facility] Serum or plasma calcium measurement (mass/volume) Serum or plasma calcium measurement (mass/volume) 9.3 8.4 - 10.2 03/03/2018 [facility] Serum or plasma carbon dioxide, total measurement (moles/volume) Serum or plasma carbon dioxide, total measurement (moles/volume) 24 22 - 29 03/03/2018 [facility] Serum or plasma chloride measurement (moles/volume) Serum or plasma chloride measurement (moles/volume) 107 98 - 107 03/03/2018 [facility] Serum or plasma creatine kinase MB measurement (mass/volume) Serum or plasma creatine kinase MB measurement (mass/volume) 0.70 0 - 5.0 03/03/2018 [facility] Serum or plasma creatine kinase measurement (enzymatic activity/volume) Serum or plasma creatine kinase measurement (enzymatic activity/volume) 69 30 - 200 03/03/2018 [facility] Serum or plasma creatinine measurement (mass/volume) Serum or plasma creatinine measurement (mass/volume) 1.15 0.72 - 1.25 03/03/2018 [facility] Serum or plasma lipase measurement (enzymatic activity/volume) Serum or plasma lipase measurement (enzymatic activity/volume) 14 8 - 78 03/03/2018 [facility] Serum or plasma magnesium measurement (mass/volume) Serum or plasma magnesium measurement (mass/volume) 1.5 1.3 - 2.1 03/03/2018 [facility] Serum or plasma potassium measurement (moles/volume) Serum or plasma potassium measurement (moles/volume) 3.8 3.5 - 5.1 03/03/2018 [facility] Serum or plasma protein measurement (mass/volume) Serum or plasma protein measurement (mass/volume) 6.4 6.5 - 8.1 03/03/2018 [facility] Serum or plasma sodium measurement (moles/volume) Serum or plasma sodium measurement (moles/volume) 140 136 - 145 03/03/2018 [facility] Serum or plasma thyrotropin measurement by detection limit <=0.005 miu/l (units/volume) Serum or plasma thyrotropin measurement by detection limit <=0.005 miu/l (units/volume) 0.782 0.350 - 4.940 03/03/2018 [facility] Serum or plasma total bilirubin measurement (mass/volume) Serum or plasma total bilirubin measurement (mass/volume) 1.3 0.2 - 1.2 03/03/2018 [facility] Serum or plasma urea nitrogen measurement (mass/volume) Serum or plasma urea nitrogen measurement (mass/volume) 14 7 - 26 03/03/2018 [facility] Serum or plasma urea nitrogen/creatinine mass ratio Serum or plasma urea nitrogen/creatinine mass ratio 12 6 - 25 03/03/2018 [facility] Troponin I measurement by highly sensitive enzyme immunoassay Troponin I measurement by highly sensitive enzyme immunoassay <0.001 0 - 0.300 03/03/2018 [facility] Red Cell Distribution Width 13.8 11.7 - 14.4 03/03/2018 [facility] IM GRANULOCYTES % 0.8 0.0 - 1.0 03/03/2018 [facility] Absolute Immature Granulocyte (auto 0.09 0 - 0.1 03/03/2018 [facility] Differential Total Cells Counted 100 03/03/2018 [facility] Lactic Acid Level 14.7 4.5 - 19.8 03/03/2018 [facility] Aspartate Amino Transf (AST/SGOT) 50 5 - 34 03/03/2018 [facility] Ammonia 65 31 - 123 03/03/2018 [facility] B-Type Natriuretic Peptide 193.9 0 - 100 03/03/2018 [facility] Pathology Reports No Data Provided for This Section Diagnostic Reports Report Value Date Source Chest 1 v for Placement DX Clinical indication: Line Placement - Status post PPM/ICD Implantation Comparison: Chest 1 view 09/17/2012 TECHNIQUE: AP chest FINDINGS: Lines, tubes and hardware: A left chest wall dual-lead pacemaker/automatic implantable cardiac defibrillator has been placed with right atrial and right ventricular leads. Rounded densities overlie the lower chest bilaterally, possibly superficial to the patient. Lungs and pleura: No focal airspace consolidation. No appreciable pleural effusion or pneumothorax. Heart and mediastinum: The cardiomediastinal silhouette is enlarged, but stable with postsurgical changes of prior coronary artery bypass graft and a tortuous thoracic aorta. Bones: No acute bony abnormality is identified. IMPRESSION: Interval placement of a left chest wall dual-lead pacemaker. No acute cardiopulmonary abnormality is seen. SL: DIANELYS 07/05/2018 [facility] Consultation Notes No Data Provided for This Section Discharge Summaries No Data Provided for This Section History and Physicals No Data Provided for This Section Vital Signs Vital Sign Value Date Comments Source Systolic (mm Hg) 137 07/05/2018 [facility] Diastolic (mm Hg) 62 07/05/2018 [facility] Respitory Rate 15 07/05/2018 [facility] Systolic (mm Hg) 127 07/05/2018 [facility] Diastolic (mm Hg) 60 07/05/2018 [facility] Respitory Rate 22 07/05/2018 [facility] Respitory Rate 20 07/05/2018 [facility] Systolic (mm Hg) 130 07/05/2018 [facility] Diastolic (mm Hg) 63 07/05/2018 [facility] Temperature Oral (F) 97.7 F 07/05/2018 [facility] Temperature Oral (F) 97.9 F 07/05/2018 [facility] Temperature Oral (F) 98.5 F 07/04/2018 [facility] Heart Rate 71 07/04/2018 [facility] BMI Calculated 30.85 07/04/2018 [facility] Weight 84.091 07/04/2018 [facility] Height 165.1 cm 07/04/2018 [facility] Heart Rate 55 04/02/2014 [facility] Respitory Rate 17 04/02/2014 [facility] Systolic (mm Hg) 127 04/02/2014 [facility] Diastolic (mm Hg) 67 04/02/2014 [facility] Diastolic (mm Hg) 69 04/02/2014 [facility] Respitory Rate 18 04/02/2014 [facility] Systolic (mm Hg) 141 04/02/2014 [facility] Heart Rate 54 04/02/2014 [facility] Height 177.8 cm 04/02/2014 [facility] BMI Calculated 23.01 04/02/2014 [facility] Weight 72.727 04/02/2014 [facility] Heart Rate 71 04/02/2014 [facility] Respitory Rate 20 04/02/2014 [facility] Temperature Oral (F) 98.1 F 04/02/2014 [facility] Systolic (mm Hg) 123 04/02/2014 [facility] Diastolic (mm Hg) 65 04/02/2014 [facility] Encounters Location Location Details Encounter Type Encounter Number Reason For Visit Attending Provider ADM Date DC Date Status Source [facility] [id number] Otf Castillo 04/02/2014 04/02/2014 [facility] Departed Emergency Room [id number] JERZY LISA MD 03/03/2018 03/03/2018 [facility] Bedded Outpatient [id number] Man Bustillo 07/05/2018 07/05/2018 [facility] Procedures Procedure Code Date Perfomer Comments Source Computed tomography of brain without radiopaque contrast [id number] 03/03/2018 [facility] Computed tomography of cervical spine without contrast [id number] 03/03/2018 [facility] Back fusion [id number] [facility] CABG x 4 - Coronary artery bypass grafts x 4 [id number] [facility] Cholecystectomy [id number] [facility] Assessment and Plan No Data Provided for This Section Plan of Care Plan of Care Date Source Discharge Date 03/03/18 11:38pm Disposition HOME, SELF-CARE Condition at Discharge Stable Instructions/Education Provided Strep Throat - Adult Forms Provided Work/School Excuse Prescriptions See Medication Section Additional Instructions/Education TAKE MEDICATIONS PRESCRIBED ALTERNATE TYLENOL / MOTRIN FOR FEVER DIRECTED FOLLOW UP WITH PRIMARY CARE PHYSICIAN NEXT WEEK 03/03/2018 [facility] Social History Social History Date Source Social History TypeResponse Smoking Status Never smoker; Ready to change: No; Concerns about tobacco use in household: No; Exposure to Tobacco Smoke None; Cigarette Smoking Last 365 Days No; Reg Smoking Cessation Counseling No entered on: 07/04/18 07/04/2018 [facility] Social History Problem Response Recorded Date/Time Onset Date Status Hx Psychiatric Problems Y - PTSD 11/26/2014 11:00pm Not Applicable Not Applicable Hx Eating Disorder No 11/26/2014 11:00pm Not Applicable Not Applicable Hx Substance Use Disorder No 11/26/2014 11:00pm Not Applicable Not Applicable Hx Depression Yes 11/26/2014 11:00pm Not Applicable Not Applicable Hx Alcohol Use No 11/26/2014 11:00pm Not Applicable Not Applicable Hx Substance Use Treatment No 11/26/2014 11:00pm Not Applicable Not Applicable Hx Physical Abuse No 11/26/2014 11:00pm Not Applicable Not Applicable Smoking Status Start Date Stop Date Never Smoker 03/03/2018 [facility] Family History No Data Provided for This Section Advance Directives Order Name Results Value Date Source Advance Directives Advance Directives Directive Response Recorded Date/Time Does the patient have an advance directive? Yes 05/01/15 5:31pm If yes, is advance directive on file with [facility]? No 11/26/14 11:00pm If not on file with [facility] will patient provide a copy? Yes 05/01/15 5:31pm 03/03/2018 [facility] Functional Status No Data Provided for This Section
[2018-12-19] MEDS ORDERED: ALBUTEROL/IPRATROPIUM 3 ML NEB NEB ONE (13:45)
[2018-12-19] MEDS ORDERED: HYDROCODONE/APAP 5MG-325MG TAB PO ONE (14:00)
--- NOTE | 2018-12-19 15:29 | Diagnostic Imaging Report ---
EXAMINATION: RIBS UNILAT W/CXR INDICATION: Trauma COMPARISON: Chest radiograph 03/15/2018 FINDINGS: TUBES and LINES: New left chest AICD with leads terminating over the right atrium and right ventricle. Median sternotomy wires intact. LUNGS: The lungs are moderately inflated. Mild patchy opacities at the left lung base. PLEURA: No pleural effusion or pneumothorax. HEART AND MEDIASTINUM: The cardiac silhouette appears enlarged. Status post CABG. BONES AND SOFT TISSUES: There is a mildly displaced likely old fracture of the left posterolateral 10th rib. Projection of this area is somewhat distorted by motion artifact however there appears to be associated bony bridging and callus formation to suggest chronicity. UPPER ABDOMEN: No free air under the diaphragm. IMPRESSION: No acute displaced rib fracture. Likely old fracture of the posterolateral left 10th rib. Interval postoperative changes of CABG and left chest AICD placement. Patchy opacities at the left lung base, more likely subsegmental atelectasis than superimposed aspiration or pneumonia. Signed by: Edenilson Manrique MD on 12/19/2018 3:25 PM
== END 2018-12-19 16:25 | disposition home or self-care (01) ==
LOC: ER 12:32
DX: S20.212A Contusion of left front wall of thorax, initial encounter (principal); W01.198A Fall on same level from slipping, tripping and stumbling with subsequent striking against other object, initial encounter; Y92.512 Supermarket, store or market as the place of occurrence of the external cause; F03.90 Unspecified dementia, unspecified severity, without behavioral disturbance, psychotic disturbance, mood disturbance, and anxiety; I50.9 Heart failure, unspecified; J44.9 Chronic obstructive pulmonary disease, unspecified; H54.61 Unqualified visual loss, right eye, normal vision left eye; H91.92 Unspecified hearing loss, left ear; M21.371 Foot drop, right foot; I25.2 Old myocardial infarction; Z95.810 Presence of automatic (implantable) cardiac defibrillator; Z95.1 Presence of aortocoronary bypass graft
CPT/HCPCS: 71101; 94640; 99283

== ENCOUNTER 2019-12-08 13:30 | Emergency (ER) | payer MEDICARE, BC ==
[~2019-12-08] VITALS: Ht 165.1 cm; Wt 83.5 kg
--- NOTE | 2019-12-08 15:50 | Diagnostic Imaging Report ---
Examination: CT head without contrast Clinical Indication: Fall; head injury. Technique: Transaxial noncontrast images from the skull base through the vertex were obtained. Sagittal and coronal reformatted images were done. Dose modulation, iterative reconstruction, and/or weight based adjustment of the mA/kV was utilized to reduce the radiation dose to as low as reasonably achievable. Comparison: 02/17/[address] Findings: Scalp/skull: No abnormalities. Extra-axial spaces: No masses. No fluid collections. Brain sulci: Moderate volume loss. Ventricles: No hydrocephalus. Parenchyma: There are mild confluent areas of low-attenuation within subcortical and periventricular white matter, nonspecific, but could represent microvascular ischemic disease. 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 Punctate parenchymal calcification at the left superior parietal lobule, secondary to remote infection. No masses, hemorrhage, or acute or chronic cortical based vascular insults. Suprasellar region: No abnormalities. Craniocervical junction: The foramen magnum is patent. No Chiari one malformation. Incidental findings: Atherosclerotic calcification of the cavernous and supraclinoid internal carotid arteries. Impression: No new acute intracranial finding when compared to prior head CT dated 02/17/2017. Chronic changes as above. Signed by: Dr. Mariah Harvey M.D. on 12/08/2019 3:46 PM
--- NOTE | 2019-12-08 15:58 | Diagnostic Imaging Report ---
Examination: CT CERVICAL SPINE WO CONTRAST HISTORY:Neck pain and injury after fall. COMPARISON: CT cervical spine dated February 17, 2017. TECHNIQUE: Multidetector helical axial images were obtained without contrast from the foramen magnum to T1. Coronal and sagittal reformatted images were done. Bone and soft tissue windows were evaluated. Dose modulation, iterative reconstruction, and/or weight based adjustment of the mA/kV was utilized to reduce the radiation dose to as low as reasonably achievable. FINDINGS: Alignment:Normal alignment and lordosis. Vertebrae: Normal height and density. No acute fracture, infection or neoplasm. Disc space heights: Normal height. Caliber of spinal canal: Developmentally normal. Posterior fossa and craniocervical junction: Foramen magnum patent. No Chiari 1 malformation. Soft tissues: Unchanged atherosclerotic calcification of the right carotid bulb. Left carotid artery stent, unchanged. Degenerative changes: No disc bulge/ herniation or foraminal or canal stenosis. Visualized lung apices: No abnormalities. IMPRESSION: No new or acute abnormalities when compared to prior CT dated February 17, 2017. Signed by: Dr. Mariah Harvey M.D. on 12/08/2019 3:55 PM
--- NOTE | 2019-12-08 16:36 | Emergency Department Note ---
History of Present Illnes History of Present Illness Chief Complaint: General Medicine Complaints History of Present Illness This is a 84 year old male FELL. LIVES AT HOME. AAOX1 BASELINE. MOANING AND YELLING. 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 Any updates have been documented here. 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 CHOLESTEROL PTSD/DEPRESSION DEMENTIA Past Surgical History: Cholecysctectomy, CABG, PCI, Pacer/AICD Other Surgery: QUADRUPLE BYPASS BACK AICD Social History Smoking Cessation: Never Smoker Counseling Performed: No Alcohol Use: None Any Illegal Drug Use: No Other Last Tetanus: UTD Any Pre-Existing Lines (PICC,: No Review of Systems Review of Systems Constitutional: Reports no symptoms EENTM: Reports no symptoms Cardiovascular: Reports no symptoms Respiratory: Reports no symptoms Gastrointestinal: Reports no symptoms Genitourinary: Reports no symptoms Musculoskeletal: Reports no symptoms Integumentary: Reports no symptoms Neurological: Reports no symptoms Psychological: Reports no symptoms Endocrine: Reports no symptoms Hematological/Lymphatic: Reports no symptoms Physical Exam Related Data Allergies: Coded Allergies: No Known Allergies (Unverified , 12/08/16) Triage Vital Signs Vital Signs Date Time Temp Pulse Resp B/P (MAP) Pulse Ox O2 Delivery O2 Flow Rate FiO2 12/08/19 13:32 97.1 65 18 200/90 97 Room Air Vital signs reviewed: Yes Physical Exam CONSTITUTIONAL Constitutional: Present well-developed, Present well-nourished HENT HENT: Present normocephalic, Present atraumatic, Present oropharynx clear/moist, Present nose normal HENT L/R: Present left ext ear normal, Present right ext ear normal EYES Eyes: Reports PERRL, Reports conjunctivae normal NECK Neck: Present ROM normal PULMONARY Pulmonary: Present effort normal, Present breath sounds normal CARDIOVASCULAR Cardiovascular: Present regular rhythm, Present heart sounds normal, Present capillary refill normal, Present normal rate GASTROINTESTINAL Abdominal: Present soft, Present nontender, Present bowel sounds normal GENITOURINARY Genitourinary: Present exam deferred SKIN Skin: Present warm, Present dry MUSCULOSKELETAL Musculoskeletal: Present ROM normal NEUROLOGICAL Neurological: Present alert, Present oriented x 3, Present no gross motor or sensory deficits PSYCHOLOGICAL Psychological: Present other (ORIENTED TO NAME ONLY (REPORTED BASELINE)) Results Imaging Imaging results reviewed: Yes Impressions Examination: CT head without contrast Clinical Indication: Fall; head injury. Technique: Transaxial noncontrast images from the skull base through the vertex were obtained. Sagittal and coronal reformatted images were done. Dose modulation, iterative reconstruction, and/or weight based adjustment of the mA/kV was utilized to reduce the radiation dose to as low as reasonably achievable. Comparison: 02/17/[address] Findings: Scalp/skull: No abnormalities. Extra-axial spaces: No masses. No fluid collections. Brain sulci: Moderate volume loss. Ventricles: No hydrocephalus. Parenchyma: There are mild confluent areas of low-attenuation within subcortical and periventricular white matter, nonspecific, but could represent microvascular ischemic disease. 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 Punctate parenchymal calcification at the left superior parietal lobule, secondary to remote infection. No masses, hemorrhage, or acute or chronic cortical based vascular insults. Suprasellar region: No abnormalities. Craniocervical junction: The foramen magnum is patent. No Chiari one malformation. Incidental findings: Atherosclerotic calcification of the cavernous and supraclinoid internal carotid arteries. Impression: No new acute intracranial finding when compared to prior head CT dated 02/17/2017. Chronic changes as above. Signed by: Dr. Mariah Harvey M.D. on 12/08/2019 3:46 PM Examination: CT CERVICAL SPINE WO CONTRAST HISTORY:Neck pain and injury after fall. COMPARISON: CT cervical spine dated February 17, 2017. TECHNIQUE: Multidetector helical axial images were obtained without contrast from the foramen magnum to T1. Coronal and sagittal reformatted images were done. Bone and soft tissue windows were evaluated. Dose modulation, iterative reconstruction, and/or weight based adjustment of the mA/kV was utilized to reduce the radiation dose to as low as reasonably achievable. FINDINGS: Alignment:Normal alignment and lordosis. Vertebrae: Normal height and density. No acute fracture, infection or neoplasm. Disc space heights: Normal height. Caliber of spinal canal: Developmentally normal. Posterior fossa and craniocervical junction: Foramen magnum patent. No Chiari 1 malformation. Soft tissues: Unchanged atherosclerotic calcification of the right carotid bulb. Left carotid artery stent, unchanged. Degenerative changes: No disc bulge/ herniation or foraminal or canal stenosis. Visualized lung apices: No abnormalities. IMPRESSION: No new or acute abnormalities when compared to prior CT dated February 17, 2017. Signed by: Dr. Mariah Harvey M.D. on 12/08/2019 3:55 PM Assessment & Plan Medical Decision Making [facility] - CHECK CT HEAD & C-SPINE R/O BLEED, C-SPINE FX Reassessment Reassessment DC HOME,F/U PCP Assessment & Plan Final Impression: (1) Fall Depart Disposition: HOME, SELF-CARE Last Vital Signs Date Time Temp Pulse Resp B/P (MAP) Pulse Ox O2 Delivery O2 Flow Rate FiO2 12/08/19 13:42 98.6 60 20 157/84 100 12/08/19 13:32 Room Air Home Meds Reported Medications Levetiracetam (LEVETIRACETAM) 500 Mg Tablet, 1000 MG PO BID 05/10/18 Gabapentin (GABAPENTIN) 100 Mg Capsule, 100 MG PO BID 05/10/18 Sennosides/Docusate Sodium (SENEXON-S TABLET) 1 Each Tablet, 1 TAB PO DAILY 12/08/16 Prazosin Hcl (PRAZOSIN HCL) 2 Mg Capsule, 2 MG PO DAILY 12/08/16 Quetiapine Fumarate (QUETIAPINE FUMARATE) 25 Mg Tablet, 50 MG PO DAILY 12/08/16 Sertraline Hcl (SERTRALINE HCL) 50 Mg Tablet, 50 MG PO DAILY, #30 TAB 12/08/16 Atorvastatin Calcium (ATORVASTATIN CALCIUM) 20 Mg Tablet, 40 MG PO HS, TAB 11/29/14 Amlodipine Besylate (AMLODIPINE BESYLATE) 5 Mg Tablet, 5 MG PO DAILY, #30 TAB 11/27/14 Clopidogrel Bisulfate (CLOPIDOGREL) 75 Mg Tablet, 75 MG PO DAILY, #30 TAB 09/10/14 Aspirin (ASPIRIN) 81 Mg Tab.chew, 81 MG PO DAILY 09/10/14 JERZY LISA MD Dec 08, 2019 16:36
--- NOTE | 2019-12-08 17:11 | NUR ---
EMS CALLED AND ETA IS APPROX. 45 MIN.
== END 2019-12-08 18:51 | disposition home or self-care (01) ==
LOC: ER 13:40
DX: S00.83XA Contusion of other part of head, initial encounter (principal); W18.30XA Fall on same level, unspecified, initial encounter; Y92.008 Other place in unspecified non-institutional (private) residence as the place of occurrence of the external cause; I10 Essential (primary) hypertension; I50.9 Heart failure, unspecified; I25.10 Atherosclerotic heart disease of native coronary artery without angina pectoris; M21.371 Foot drop, right foot; I25.2 Old myocardial infarction
CPT/HCPCS: 70450; 72125; 99284

== ENCOUNTER 2020-01-02 03:53 | Emergency (ER) | payer MEDICARE, BC ==
[~2020-01-02] VITALS: Ht 165.1 cm; Wt 83.5 kg
[2020-01-02 04:13] LABS: BASOPHILS % 0.2 % (0.0-1.0); HEMATOCRIT 41.4 % (38.2-49.6); HEMOGLOBIN 14.2 g/dL (14.0-18.0); LYMPHOCYTES # (AUTO) 0.6 (1.0-3.2); LYMPHOCYTES % 9.9 % (18.0-39.1); MEAN CORPUSCULAR HEMOGLOBIN 27.7 pg (28-32); MEAN CORPUSCULAR HGB CONC 34.3 g/dL (31-35); MEAN CORPUSCULAR VOLUME 80.7 fL (81-99); MONOCYTES # (AUTO) 0.6 (0.2-0.8); MONOCYTES % 8.9 % (4.4-11.3); NEUTROPHILS # (AUTO) 5.1 (2.1-6.9); NEUTROPHILS % 80.5 % (38.7-80.0); PLATELET COUNT 167 x10e3/uL (140-360); RED BLOOD COUNT 5.13 x10e6/uL (4.3-5.7); RED CELL DISTRIBUTION WIDTH 14.1 % (11.7-14.4)
--- OUTSIDE RECORDS SUMMARY | 2020-01-02 04:19 | XMS REPORT | Continuity of Care Document ---
Author Author [facility] t Organization [facility] Address [address] [place] [address] Phone Unavailable Care Team Providers Care Integrated Pest Management Technician Name Role Phone MARLINE BYRD, MD ZAYAS PCP Yan LISA Attphys Unavailable Fam Ortega Attphys [phone] HETAL, S AMBICA Attphys Unavailable MARQUEZ HORAN Attphys Unavailable Yan CLEVELAND Attphys Unavailable Shaggy Castillo Attphys Payers Payer Name Policy Type Policy Number Effective Date Expiration Date Darrion sánchez [facility] [id number] 2015 00:00:00 [facility] Medicare A & B [id number] 1999 00:00:00 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 Dyspnea Dyspnea Problem Active 2014-09-10 00:00:00 [facility] FALL FALL Active 04/02/2014 [facility] Active 2014-04-02 00:00:00 2014-04-09 22:40:00 [facility] Mukesh Fall Problem Active [facility] Ischemic cardiomyopathy Isch emic cardiomyopathy 01/22/2019 [facility] Problem 2019-01-22 15:33:09 [facility] Chronic systolic (congestive) heart failure Chronic systolic (congestive) heart failure 01/22/2019 [facility] Problem 2019-01-22 15:33:09 [facility] Hypotension, unspecified Hypo tension, unspecified 01/22/2019 [facility] Problem 2019-01-22 15:33:09 [facility] Bradycardia, unspecified Portillo ycardia, unspecified 01/22/2019 [facility] Problem 2019-01-22 15:33:09 [facility] Unspecified hearing loss, left ear Unspecified hearing loss, left ear 01/22/2019 [facility] Problem 2018-12-28 7 15:33:09 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 01/22/2019 [facility] Problem 2019-01-22 15:33:09 [facility] Dementia with behavioral disturbance (disorder) Dementia with behavioral disturbance (disorder) Resolved Problem 01/22/2019 [facility] Problem Resolved 2019-01-22 15:33:09 [facility] Hallucinations (finding) Kuhn ucinations (finding) Resolved Problem 01/22/2019 [facility] Resolved 2019-01-22 15: 33:09 Edith Mayorga Unknown (qualifier value) Unkn own (qualifier value) Resolved Problem 01/22/2019 [facility] Resolved 2019-01-22 15:33:09 Edith Mayorga 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) Active Problem 01/22/2019 [facility] Ac tive 2019-01-22 15:33:09 Edith serrano Hypertensive disorder, systemic arterial (disorder) Hypertensive disorder, systemic arterial (disorder) Active Problem 01/22/2019 [facility] Active 2019-01-22 15:33:09 Edith Mayorga Incoordination (finding) Inco ordination (finding) Active Problem 01/22/2019 [facility] Active 2019-01-22 15:33:0 9 Edith Mayorga Posttraumatic stress disorder (disorder) Posttraumatic stress disorder (disorder) Active Problem 01/22/2019 [facility] Active 2019-01-22 15:33:09 Edith Mayorga Asthenia (finding) Asth enia (finding) Active Problem 01/22/2019 [facility] Active 2019-01-22 15:33:09 Edith Mayorga 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) Active Problem 01/22/2019 occ at home [facility] Problem Active 2019-01-22 15:33:09 Maxwell betsy Mayorga Hearing loss (finding) Hear ing loss (finding) Active Problem 01/22/2019 left deaf [facility] Active 2019-01-22 15 :33:09 Edith Mayorga Impaired mobility (finding) Im paired mobility (finding) Active Problem 01/22/2019 [facility] Active 2019-01-22 15:33:09 Edith Mayorga Peripheral vascular disease (disorder) Peripheral vascular disease (disorder) Active Problem 01/22/2019 RLE [facility] Problem Active 2019-01-22 15:33:09 Tosha Mayorga Visual impairment (disorder) V isual impairment (disorder) Active Problem 01/22/2019 right [facility] Problem Active 2019-01-22 15:33:09 Edith Mayorga Dilated cardiomyopathy Dila olivia cardiomyopathy 07/14/2018 01/22/2019 [facility] Problem 2018-07-14 04:47:08 2018 15:33:09 2019-01-22 15:33:09 Edith Mayorga Discharge Diagnosis: Fall from standing Discharge Diagnosis: Fall from standing 04/02/2014 04/05/2014 [facility] Problem 2014-04-02 06:00:00 2014-04-05 03:09:51 2014-04-05 03:09:51 Edith Mayorga Discharge Diagnosis: Closed head injury Discharge Diagnosis: Closed head injury 04/02/2014 04/05/2014 [facility] Problem 2014-04-02 06:00:00 2014-04-05 03:09:51 2014-04-05 03:09:51 Edith Mayorga Allergies, Adverse Reactions, Alerts Allergy Name Allergy Type Status Severity Reaction(s) Onset Date Inacti ve Date Treating Clinician Comments Source No Known Medication Allergies No Known Medication Allergies Active Edith Mayorga Social History Social Habit Start Date Stop Date Quantity Comments Source Sex Assigned At [facility] Alcohol intake 2016-12-19 00:00:00 2016-12-19 00:00:00 Current non-drinker of alcohol (finding) Ayaz Rajan Smoking Status Start Date Stop Date Source Social History Edith Mayorga Medications Ordered Medication Name Filled Medication Name Start Date Stop Da te Current Medication? Ordering Clinician Indication Dosage Frequency Signature (SIG) Comments Components Source acetaminophen-codeine #3 2018-07-05 16:03:00 No Notes: Do not exceed 4gm/day of acetaminophen. (Same as: Tylenol with Codeine # 3) Edith Mayorga metoprolol 25 mg oral tablet, extended release 2018-07-04 16:49: 00 Yes 25 mg = 1 tab, PO, Daily, # 90 tab, 3 Refill(s) Edith Mayorga Furosemide 40 MG Oral Tablet 2018-07-04 16:49:00 Yes 40 mg = 1 tab, PO, Daily, # 90 tab, 1 Refill(s) Aravind l Mukesh gabapentin 100 MG Oral Capsule 2018-07-04 16:48:00 Yes 100 mg = 1 cap, PO, BID, # 90 cap, 1 Refill(s) Maxwell rial Mukesh Vitamin D3 2000 intl units oral capsule 2018-07-04 16:48:00 Yes 2,000 IntlUnit = 1 cap, PO, Daily, # 100 cap, 3 Refill(s) Edith Mayorga Levetiracetam 1000 MG Oral Tablet 2018-07-04 16:48:00 Yes 1,000 mg = 1 tab, PO, BID, # 60 tab, 2 Refill(s) clarissa Sánchezann QUEtiapine 50 mg oral tablet 2018-07-04 16:47:00 Yes 100 mg = 2 tab, PO, Bedtime, # 90 tab, 0 Refill(s) Tosha Mayorga prazosin 2 mg oral capsule 2018-07-04 16:47:00 Yes 2 mg = 1 cap, PO, Bedtime, 0 Refill(s) Edith Mukesh sertraline 50 mg oral tablet 2018-07-04 16:46:00 Yes 50 mg = 1 tab, PO, Bedtime, # 90 tab, 0 Refill(s) Tosha Mayorga atorvastatin 2018-07-04 16:46:00 Yes 20 mg, PO, Bedtime, 0 Refill(s) Edith Mukesh Vitamin B12 1000 mcg oral tablet 2018-07-04 16:46:00 Yes 1,000 microgram = 1 tab, PO, Daily, # 100 tab, 3 Refill(s) Edith Mayorga clopidogrel 75 mg oral tablet 2018-07-04 16:45:00 Yes 75 mg = 1 tab, PO, Daily, # 90 tab, 3 Refill(s) Aravind Mayorga amLODIPine 10 mg oral tablet 2018-07-04 16:45:00 Yes 10 mg = 1 tab, PO, Daily, # 90 tab, 1 Refill(s) Ashleymichael shalom Mayorga Cephalexin Monohydrate (Keflex) 500 Mg CAPSULE Cephale sumeet Monohydrate (Keflex) 500 Mg CAPSULE 2018-03-15 21:19:00 2018-05-10 00:00:00 No 5 00 Every 6 Hours [facility] amLODIPine (NORVASC) 10 mg tablet 2016-12-23 18:34:24 Yes 10mg QD Take 10 mg by mouth daily. Ayaz Rajan lisinopril (PRINIVIL,ZESTRIL) 40 mg tablet 2016-12-23 18:34:24 Yes 40mg QD Take 40 mg by mouth daily. Amie christiansen Zoroastrian clopidogrel (PLAVIX) 75 mg tablet 2016-12-23 18:34:24 Yes 75mg QD Take 75 mg by mouth daily. Ayaz Rajan aspirin (ECOTRIN) 81 MG enteric coated tablet 2016-12-23 18:34:2 4 Yes 81mg QD Take 81 mg by mouth daily. Monserrat Rajan senna (SENOKOT) 8.6 mg tablet 2016-12-23 18:34:24 Yes 1{tbl} QD Take 1 tablet by mouth daily. Ayaz Rajan cyanocobalamin 1000 MCG tablet 2016-12-23 18:34:24 Yes 1000ug QD Take 1,000 mcg by mouth daily. Ayaz valentine atorvastatin (LIPITOR) 20 MG tablet 2016-12-23 18:34:24 Yes 20mg QD Take 20 mg by mouth nightly. Default OP ins Monserrat Rajan sertraline (ZOLOFT) 50 MG tablet 2016-12-23 18:34:24 Yes 50mg QD Take 50 mg by mouth nightly. Ayaz Rajan prazosin (MINIPRESS) 2 MG capsule 2016-12-23 18:34:24 Yes 2mg QD Take 2 mg by mouth nightly. Ayaz Rajan cholecalciferol, vitamin D3, (VITAMIN D3) 2,000 unit capsule capsule 2016-12-23 18:34:24 Yes 4000U QD Take 4,000 Units b y mouth daily. Ayaz Rajan metoprolol tartrate (LOPRESSOR) 25 mg tablet 2016-12-23 18:34:24 Yes 25mg Q.5D Take 25 mg by mouth 2 (two) times a day. Ayaz Rajan Amlodipine Besylate Amlodipine Besylate Yes [address] [facility] Aspirin Aspirin Yes [address] [facility] Atorvastatin Calcium Atorvastatin Calcium Yes [address] [facility] Clopidogrel Bisulfate (Clopidogrel) 75 Mg TABLET Clopi dogrel Bisulfate (Clopidogrel) 75 Mg TABLET Yes [address] [facility] Gabapentin Gabapentin Yes [address] [facility] Levetiracetam Levetiracetam Yes [address] [facility] Prazosin Hcl Prazosin Hcl Yes [address] [facility] Quetiapine Fumarate Quetiapine Fumarate Yes [address] [facility] Sennosides/Docusate Sodium (Senexon-S Tablet) 1 Each T ABLET Sennosides/Docusate Sodium (Senexon-S Tablet) 1 Each TABLET Yes [address] [facility] Sertraline Hcl Sertraline Hcl Yes [address] [facility] Lisinopril Lisinopril 2018-05-10 00:00:00 No 40 [place] [facility] Tramadol Hcl (Ultram 50MG*) 50 Mg TAB Tramadol Hcl (Ultram 50MG* ) 50 Mg TAB 2018-05-10 00:00:00 No 50 Every 6 Hours as nee ded for Pain [facility] Famotidine Famotidine 2016-12-08 00:00:00 No [address] [facility] Hydralazine Hcl Hydralazine Hcl 2016-12-08 00:00:00 No 25 Three Times A Day [facility] Isosorbide Dinitrate (Isordil) 40 Mg TABLET Isosorbide Dinitrate (Isordil) 40 Mg TABLET 2016-12-08 00:00:00 No [address] [facility] Metoprolol Tartrate Metoprolol Tartrate 2016-12-08 00:00:00 No 25 Twice A Day [facility] Furosemide Furosemide 2014-11-29 00:00:00 No [address] [address] [facility] Magnesium Oxide Magnesium Oxide 2014-11-29 00:00:[address] [facility] Paroxetine Hcl Paroxetine Hcl 2014-11-29 00:00:[address] [facility] Potassium Chloride Potassium Chloride 2014-11-29 00:00:[address] [facility] Quetiapine Fumarate Quetiapine Fumarate 2014-11-29 00:00:00 No 25 Daily [facility] Risperidone Risperidone 2014-11-29 00:00:00 No .5 D aily [facility] Rosuvastatin Calcium (Crestor) 20 Mg TABLET Rosuvastat in Calcium (Crestor) 20 Mg TABLET 2014-11-29 00:00:[address] [facility] Prazosin Hcl Prazosin Hcl 2014-09-12 00:00:[address] [facility] Vital Signs Vital Name Observation Time Observation Value Comments Source Weight 2019-12-08 13:32:00 184 [lb_av] [facility] BMI (Body Mass Index) 2019-12-08 13:32:00 30.6 kg/m2 [facility] Systolic (mm Hg) 2018-07-05 18:44:00 Maxwell rial Mukesh Diastolic (mm Hg) 2018-07-05 18:44:00 Mem orial Muk[facility] Respitory Rate 2018-07-05 18:44:00 Memori al Muk[facility] Systolic (mm Hg) 2018-07-05 18:14:00 Maxwell rial [place] Diastolic (mm Hg) 2018-07-05 18:14:00 Mem orial Muk[facility] Respitory Rate 2018-07-05 18:14:00 Memori [facility] [place] Respitory Rate 2018-07-05 17:44:00 Memori al [facility] Systolic (mm Hg) 2018-07-05 17:44:00 Maxwell rial [place] Diastolic (mm Hg) 2018-07-05 17:44:00 Mem orial Mukesh Temperature Oral (F) 2018-07-05 16:19:00 97.7 F [facility] [place] Temperature Oral (F) 2018-07-05 14:05:00 97.9 F [facility] [place] Temperature Oral (F) 2018-07-04 16:05:00 98.5 F [facility] [place] Heart Rate 2018-07-04 16:05:00 [facility] [place] BMI Calculated 2018-07-04 15:49:00 Memori al Muk[facility] Weight 2018-07-04 15:49:00 [facility] [place] Height 2018-07-04 15:49:00 165.1 cm [facility] [place] Heart Rate 2014-04-02 17:37:00 [facility] Respitory Rate 2014-04-02 17:37:00 Memori al Mukesh Systolic (mm Hg) 2014-04-02 17:37:00 Maxwell rial Mukesh Diastolic (mm Hg) 2014-04-02 17:37:00 Mem orial [place] Diastolic (mm Hg) 2014-04-02 16:57:00 [facility] [place] Respitory Rate 2014-04-02 16:57:00 Memori [facility] [place] Systolic (mm Hg) 2014-04-02 16:57:00 Maxwell rial Mukesh Heart Rate 2014-04-02 16:57:00 Edith [place] Height 2014-04-02 14:37:00 177.8 cm [facility] Mukesh BMI Calculated 2014-04-02 14:37:00 Ashleychris Avinaann Weight 2014-04-02 14:37:00 [facility] [place] Heart Rate 2014-04-02 14:37:00 [facility] [place] Respitory Rate 2014-04-02 14:37:00 Radha ochao [place] Temperature Oral (F) 2014-04-02 14:37:00 98.1 F [facility] [place] Systolic (mm Hg) 2014-04-02 14:37:00 Maxwell betsy [place] Diastolic (mm Hg) 2014-04-02 14:37:00 Mem orial [place] Procedures Procedure Date / Time Performed Performing Clinician [facility] e Computed tomography of brain without radiopaque contrast 2019-11 00:00:00 [facility] Computed tomography of cervical spine without contrast 2019-11-27 2 00:00:00 [facility] Back fusion [facility] [place] CABG x 4 - Coronary artery bypass grafts x [address] [facility] [place] [address] [facility] Plan of Care Planned Activity Planned Date Details Comments Source Future Scheduled Test 2019-12-28 00:00:00 INFLUENZA VACCINE [code = INFLUENZA VACCINE] [facility] Future Scheduled Test 1999-12-04 00:00:00 65+ PNEUMOCOCCAL V ACCINE (1 of 2 - PCV13) [code = 65+ PNEUMOCOCCAL VACCINE (1 of 2 - PCV13)] [facility] Future Scheduled Test 1984 00:00:00 SHINGLES VACCINES (#1) [code = SHINGLES VACCINES (#1)] [facility] Instructions Fall Prevention [facility] Encounters Start Date/Time End Date/Time Encounter Type Admission Type Attendi [facility] Facility Care Department Encounter ID Source 2019-12-08 13:40:00 2019-12-08 18:51:00 Departed Emergency Room 1 [facility] [id number] [facility] 2018-12-19 12:32:00 2018-12-19 16:25:00 Departed Emergency Room 1 [facility] [id number] [facility] 2018-07-05 06:38:00 2018-07-05 14:00:00 Outpatient Man [facility] [id number] 2018-07-05 06:38:00 2018-07-05 14:00:00 Outpatient Man [facility] [id number] 2018-05-11 11:49:00 2018-05-11 11:49:[address] [facility] [id number] [facility] 2018-03-15 14:47:00 2018-03-15 21:56:00 Departed Emergency Room [address] [facility] [id number] [facility] 2018-03-03 20:01:00 2018-03-03 23:38:00 Departed Emergency Room [address] [facility] [id number] [facility] 2014-04-02 08:36:00 2014-04-02 11:42:00 Outpatient Otf Villegas [facility] [id number] Results Test Description Test Time Test Comments Results Result Comments Source CT CERVICAL SPINE WO 2019-12-08 15:46:00 [place] [address] Patient Name: JOHN WHELAN MR #: [id number] : 1935 Age/Sex: 84/M Req #: [id number] Adm Physician: Ordered by: JERZY LISA MD Report #: [id number] Location: ER Room/Bed: Procedure: [id number] CT/CT CERVICAL SPINE WO Exam Date: 12/08/19 Exam Time: 1445 REPORT STATUS: Signed Examination: CT CERVICAL SPINE WO CONTRAST HISTORY:Neck pain and injury after fall. COMPARISON: CT cervical spine dated February 17, 2017. TECHNIQUE: Multidetector helical axial images were obtained without contrast from the foramen magnum to T1. Coronal and sagittal reformatted images were done. Bone and soft tissue windows were evaluated. Dose modulation, iterative reconstruction, and/or weight based adjustment of the mA/kV was utilized to reduce the radiation dose to as low as reasonably achievable. FINDINGS: Alignment:Normal alignment and lordosis. Vertebrae: Normal height and density. No acute fracture, infection or neoplasm. Disc space heights: Normal height. Caliber of spinal canal: Developmentally normal. Posterior fossa and craniocervical junction: Foramen magnum patent. No Chiari 1 malformation. Soft tissues: Unchanged atherosclerotic calcification of the right carotid bulb. Left carotid artery stent, unchanged. Degenerative changes: No disc bulge/ herniation or foraminal or canal stenosis. Visualized lung apices: No abnormalities. IMPRESSION: No new or acute abnormalities when compared to prior CT dated February 17, 2017. Signed by: Dr. John Harvey M.D. on 12/08/2019 3:55 PM Dictated By: JOHN IQBAL MD 54 Transcribed By: TANIKA on 12/08/191554 COPY TO: JERZY LISA MD CT BRAIN WO 2019-12-08 15:35:00 [place] [address] Patient Name: JOHN WHELAN MR #: [id number] : 1935 Age/Sex: 84/M Req #: [id number] Adm Physician: Ordered by: JERZY LISA MD Report #: [id number] Location: ER Room/Bed: Procedure: [id number] CT/CT BRAIN WO Exam Date: 12/08/19 Exam Time: 1445 REPORT STATUS: Signed Examination: CT head without contrast Clinical Indication: Fall; head injury. Technique: Transaxial noncontrast images from the skull base through the vertex were obtained. Sagittal and coronal reformatted images were done. Dose modulation, iterative reconstruction, and/or weight based adjustment of the mA/kV was utilized to reduce the radiation dose to as low as reasonably achievable. Comparison: 02/17/[address] Findings: Scalp/skull: No abnormalities. Extra-axial spaces: No masses. No fluid collections. Brain sulci: Moderate volume loss. Ventricles: No hydrocephalus. Parenchyma: There are mild confluent areas of low-attenuation within subcortical and periventricular white matter, nonspecific, but could represent microvascular ischemic disease. 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 Punctate parenchymal calcification at the left superior parietal lobule, secondary to remote infection. No masses, hemorrhage, or acute or chronic cortical based vascular insults. Suprasellar region: No abnormalities. Craniocervical junction: The foramen magnum is patent. No Chiari one malformation. Incidental findings: Atherosclerotic calcification of the cavernous and supra clinoid internal carotid arteries. Impression: No new acute intracranial finding when compared to prior head CT dated 02/17/2017. Chronic changes as above. Signed by: Dr. Jonh Harvey M.D. on 12/08/2019 3:46 PM Dictated By: JOHN IQBAL MD 1546 Transcribed By: TANIKA on 12/08/19 1546 COPY TO: JERZY LISA MD [facility] W/CXR 2018-12-19 15:20:00 [place] [address] Patient Name: JOHN WHELAN MR #: [id number] : 1935 Age/Sex: 83/M Req #: [id number] [facility] Physician: Ordered by: JERZY LISA MD Report #: [id number] Location: ER Room/Bed: Procedure: [id number] DX/RIBS UNILAT W/CXR Exam Date: 12/19/18 Exam Time: 1450 REPORT STATUS: Signed EXAMINATION: RIBS UNILAT W/CXR INDICATION: Trauma COMPARISON: Chest radiograph 03/15/2018 FINDINGS: TUBES and LINES: New left chest AICD with leads terminating over the right atrium and right ventricle. Median sternotomy wires intact. LUNGS: The lungs are moderately inflated. Mild patchy opacities at the left lung base. PLEURA: No pleural effusion or pneumothorax. HEART AND MEDIASTINUM: The cardiac silhouette appears enlarged. Status post CABG. BONES AND SOFT TISSUES: There is a mildly displaced likely old fracture of the left posterolateral 10th rib. Projection of this area is somewhat distorted by motion artifact however there appears to be associated bony bridging and callus formation to suggest chronicity. UPPER ABDOMEN: No free air under the diaphragm. IMPRESSION: No acute displaced rib fracture. Likely old fracture of the posterolateral left 10th rib. Interval postoperative changes of CABG and left chest AICD placement. Patchy opacities at the left lung base, more likely subsegmental atelectasis than superimposed aspiration or pneumonia. Signed by: Blaire Palomino MD on 12/19/2018 3:25 PM Dictated By: BLAIRE PALOMINO MD 1525 Transcribed By: TANIKA on 12/19/18 1525 COPY TO: JERZY LISA MD CHEM PANEL 2018-07-04 16:39:00 55 Tosha Mayorga CHEM PANEL 2018-07-04 16:39:00 24 Tosha Mayorga CHEM PANEL 2018-07-04 16:39:00 9.2 Memor ial Mukesh CHEM PANEL 2018-07-04 16:39:00 94 [facility] [place] CHEM PANEL 2018-07-04 16:39:00 1.21 Memor ial Muk[facility] CHEM PANEL 2018-07-04 16:39:00 17 Memor ial [place] CHEM PANEL 2018-07-04 16:39:00 3.9 Memor ial Mukesh CHEM PANEL 2018-07-04 16:39:00 141 Memor ial [facility] CHEM PANEL 2018-07-04 16:39:00 107 Memor ial [place] CHEM PANEL 2018-07-04 16:39:00 13.9 Memor ial Mukesh ELECTROLYTES 2018-07-04 16:39:00 13.9 Mem orial Mukesh ELECTROLYTES 2018-07-04 16:39:00 94 Mem orial [place] ELECTROLYTES 2018-07-04 16:39:00 17 Mem orial Mukesh ELECTROLYTES 2018-07-04 16:39:00 1.21 Mem orial Mukesh ELECTROLYTES 2018-07-04 16:39:00 141 Mem orial [place] ELECTROLYTES 2018-07-04 16:39:00 3.9 Mem orial Mukesh ELECTROLYTES 2018-07-04 16:39:00 107 Mem orial Mukesh ELECTROLYTES 2018-07-04 16:39:00 24 Mem orial [place] ELECTROLYTES 2018-07-04 16:39:00 9.2 Mem orial [facility] ELECTROLYTES 2018-07-04 16:39:00 55 Mem orial Mukesh HEMATOLOGY 2018-07-04 16:39:00 0.9 [facility] [place] HEMATOLOGY 2018-07-04 16:39:00 4.8 Memor ial Mukesh HEMATOLOGY 2018-07-04 16:39:00 0.3 Mem[facility] [place] HEMATOLOGY 2018-07-04 16:39:00 0.6 Memor [facility] [place] HEMATOLOGY 2018-07-04 16:39:00 13.6 Memor ial Muk[facility] HEMATOLOGY 2018-07-04 16:39:00 72.3 Memor ial [place] HEMATOLOGY 2018-07-04 16:39:00 8.9 Memor ial [facility] HEMATOLOGY 2018-07-04 16:39:00 0.6 Memor [facility] [place] HEMATOLOGY 2018-07-04 16:39:00 4.6 Memor [facility] [place] HEMATOLOGY 2018-07-04 16:39:00 34.1 [facility] 2018-07-04 16:39:00 Test Item MCH (test code = MCH) 27.6 pg 27.0-31.0 [facility]TytpfbeSDJVHWVQPC4764-01-67 16:39:43578Xmgdrdfn HermannHEMATOLOGY 2018-07-04 16:39:0015.2[facility] WgojsjgIPFLGOAGLT5294-01-38 16:39:007.8[facility] OlczrndBKXCBBHLXH5614-20-29 16:39:0081.0[facility] FkhtmkyNVCFHRSFFV8094-10-60 16:39:005.16[facility] YyhipbhHRQOXHLHQC5793-89-15 16:39:0014.2[facility] VJNFVGWXHJ4359-42-76 16:39:006.7[facility] BrwerdpVMPTEXZVAD1991-17-20 16:39:00 41.7[facility] CampusChkiwgxJNBUMUNWHR5380-73-22 16:39:00* Test Item Value Reference Range Interpretation Comments PTT (test code = PTT) 29.2 s 22.9-35.8 [facility]FauapobEITPXVCNDY2995-99-69 16:39:00* Test Item Value Reference Range Interpretation Comments PT (test code = PT) 12.0 s 12.0-14.7 [facility] HospitalJhobbghSTBZEQXGJM2506-63-30 16:39:00* Test Item Value Reference Range Interpretation Comments INR (test code = INR) 0.90 1 0.85-1.17 [facility] Ukrcf8412-09-58 14:34:00* Test Item Value Reference Range Interpretation Comments Sodium Level (test code = 2951-2) 137 136-145 [facility] CenterPotassium Drtie6797-98-05 14:34:00* Test Item Value Reference Range Interpretation Comments Potassium Level (test code = 2823-3) 4.3 3.5-5.1 [facility] CenterChloride Blkja7909-01-57 14:34:00* Test Item Value Reference Range Interpretation Comments Chloride Level (test code = 2075-0) 105 98-107 [facility] Medical CenterCarbon Dioxide Pwzzu8373-80-43 14:34:00* Test Item Value Reference Range Interpretation Comments Carbon Dioxide Level (test code = 2028-9) 24 22-29 [facility] CenterAnion Pdb2246-27-99 14:34:00* Test Item Value Reference Range Interpretation Comments Anion Gap (test code = 88027-8) 12.3 8-16 [facility] CenterBlood Urea Qabxtinc8719-83-88 14:34:00* Test Item Value Reference Range Interpretation Comments Blood Urea Nitrogen (test code = 3094-0) 12 7-26 [facility] CenterCreatinine2018-12-13 14:34:00* Test Item Value Reference Range Interpretation Comments Creatinine (test code = 2160-0) 0.94 0.72-1.25 [facility] CenterBUN/Creatinine Rskez5627-91-99 14:34:00* Test Item Value Reference Range Interpretation Comments BUN/Creatinine Ratio (test code = 3097-3) 13 6-25 [facility] Medical CenterEstimat Glomerular Filtration Rate 2018-05-10 14:34:00* Test Item Value Reference Range Interpretation Comments Estimat Glomerular Filtration Rate (test code = 888237863) > 60 >60 Ranges were taken from the National Kidney Disease Education Program and the [facility] system[facility] Kidney Foundation literature.Reference ranges:60 or greater: Jveven43-42 ( for 3 consecutive months): Chronic kidney disease 15 or less: Kidney failureSt. Luke's Health – [facility]lor St. [facility]'s Medical CenterGlucose Tzrhr6093-55-53 14:34:00* Test Item Value Reference Range Interpretation Comments Glucose Level (test code = KUV7502) 134 74-[address] [facility] [address] CenterCalcium Asovz3222-63-70 14:34:00* Test Item Value Reference Range Interpretation Comments Calcium Level (test code = 77671-8) 8.9 8.4-10.2 [facility] Medical CenterTotal Ywfwptfqa7144-94-03 14:34:00* Test Item Value Reference Range Interpretation Comments Total Bilirubin (test code = 1975-2) 0.6 0.2-1.2 [facility] Medical CenterAspartate Amino Transf (AST/SGOT) 2018-05-10 14:34:00* Test Item Value Reference Range Interpretation Comments Aspartate Amino Transf (AST/SGOT) (test code = Aspartate Amino Transf (AST/SGOT)) 16 5-34 [facility] Medical CenterAlanine Aminotransferase (ALT/SGPT) 2018-05-10 14:34:00* Test Item Value Reference Range Interpretation Comments Alanine Aminotransferase (ALT/SGPT) (test code = 1742-6) 15 0-55 [facility] Medical CenterTotal Zylqial6676-81-13 14:34:00* Test Item Value Reference Range Interpretation Comments Total Protein (test code = 2885-2) 6.3 6.5-8.[address] Medical CenterAlbumin2018-12-13 14:34:00* Test Item Value Reference Range Interpretation Comments Albumin (test code = 1751-7) 3.3 3.5-5.[address] [facility] Medical CenterGlobulin2018-12-13 14:34:00* Test Item Value Reference Range Interpretation Comments Globulin (test code = 52623-5) 3.0 2.3-3.5 [facility] Medical CenterAlbumin/Globulin Ijvfo2271-29-72 14:34:00 * Test Item Value Reference Range Interpretation Comments Albumin/Globulin Ratio (test code = 1759-0) 1.1 0.8-2.0 [facility] Medical CenterAlkaline Rcndrcmpyex6729-88-86 14:34:00* Test Item Value Reference Range Interpretation Comments Alkaline Phosphatase (test code = 6768-6) 85 40-150 [facility] CenterTriglycerides Qitol7154-30-30 14:34:00* Test Item Value Reference Range Interpretation Comments Triglycerides Level (test code = 2571-8) 159 0-[address] [facility] CenterCholesterol Ssinr2589-34-20 14:34:00* Test Item Value Reference Range Interpretation Comments Cholesterol Level (test code = 2093-3) 130 0-199 Less than 200 mg/dL Low Rjoh061 - 239 mg/dL Borderline Ynvc822 m g/dl and greater High Risk [facility] Medical CenterLDL Opsbodvdjot6949-93-07 14:34:00* Test Item Value Reference Range Interpretation Comments LDL Cholesterol (test code = 2089-1) 47 60-[address] [facility] Medical CenterHDL Zctvmeyhxre4829-60-45 14:34:00* Test Item Value Reference Range Interpretation Comments HDL Cholesterol (test code = 2085-9) 51 40-60 [facility] CenterCholesterol/HDL Sqgbb7835-90-36 14:34:00 * Test Item Value Reference Range Interpretation Comments Cholesterol/HDL Ratio (test code = 9830-1) 2.5 3.9-4.[address] [facility] Medical CenterWhite Blood Relqn7948-88-74 14:18:00* Test Item Value Reference Range Interpretation Comments White Blood Count (test code = 6690-2) 6.17 4.8-10.8 [facility] Medical CenterRed Blood Fagij5046-36-67 14:18:00* Test Item Value Reference Range Interpretation Comments Red Blood Count (test code = 789-8) 4.67 4.3-5.7 [facility] Medical CenterHemoglobin2018-12-13 14:18:00* Test Item Value Reference Range Interpretation Comments Hemoglobin (test code = 02903-3) 13.0 14.0-18.[address] [facility] Medical CenterHematocrit2018-12-13 14:18:00* Test Item Value Reference Range Interpretation Comments Hematocrit (test code = 4544-3) 39.1 38.2-49.6 [facility] Medical CenterMean Corpuscular Yktgtj2437-21-78 14:18:00* Test Item Value Reference Range Interpretation Comments Mean Corpuscular Volume (test code = 787-2) 83.7 81-99 [facility] Medical CenterMean Corpuscular Jtohtcazox3932-82-67 14:18:00* Test Item Value Reference Range Interpretation Comments Mean Corpuscular Hemoglobin (test code = 785-6) 27.8 28-[address] [facility] Medical CenterMean Corpuscular Hemoglobin Concent 2018-05-10 14:18:00* Test Item Value Reference Range Interpretation Comments Mean Corpuscular Hemoglobin Concent (test code = 786-4) 33.2 31-35 [facility] Medical CenterRed Cell Distribution Azrue1286-87-18 14:18:00* Test Item Value Reference Range Interpretation Comments Red Cell Distribution Width (test code = 33109-2) 14.2 11.7 -14.4 [facility] Medical CenterPlatelet Gfupp5567-15-84 14:18:00* Test Item Value Reference Range Interpretation Comments Platelet Count (test code = 777-3) 163 140-360 [facility] CenterNeutrophils (%) (Auto)2018-05-10 14:18:00 * Test Item Value Reference Range Interpretation Comments Neutrophils (%) (Auto) (test code = 90934-7) 66.6 38.7-80.0 [facility] Medical CenterLymphocytes (%) (Auto)2018-05-10 14:18:00 * Test Item Value Reference Range Interpretation Comments Lymphocytes (%) (Auto) (test code = 736-9) 13.0 18.0-39.[address] [facility] Medical CenterMonocytes (%) (Auto)2018-05-10 14:18:00* Test Item Value Reference Range Interpretation Comments Monocytes (%) (Auto) (test code = 5905-5) 10.7 4.4-11.3 [facility] CenterEosinophils (%) (Auto)2018-05-10 14:18:00 * Test Item Value Reference Range Interpretation Comments Eosinophils (%) (Auto) (test code = 713-8) 8.8 0.0-6.[address] [facility] CenterBasophils (%) (Auto)2018-05-10 14:18:00* Test Item Value Reference Range Interpretation Comments Basophils (%) (Auto) (test code = 706-2) 0.3 0.0-1.0 [facility] Medical CenterIM GRANULOCYTES %2018-05-10 14:18:00* Test Item Value Reference Range Interpretation Comments IM GRANULOCYTES % (test code = IM GRANULOCYTES %) 0.6 0.0- 1.0 [facility] Medical CenterNeutrophils # (Auto)2018-05-10 14:18:00* Test Item Value Reference Range Interpretation Comments Neutrophils # (Auto) (test code = 751-8) 4.1 2.1-6.9 [facility] Medical CenterLymphocytes # (Auto)2018-05-10 14:18:00* Test Item Value Reference Range Interpretation Comments Lymphocytes # (Auto) (test code = 47238-0) 0.8 1.0-3.[address] CenterMonocytes # (Auto)2018-05-10 14:18:00* Test Item Value Reference Range Interpretation Comments Monocytes # (Auto) (test code = 742-7) 0.7 0.2-0.8 [facility] CenterEosinophils # (Auto)2018-05-10 14:18:00* Test Item Value Reference Range Interpretation Comments Eosinophils # (Auto) (test code = 711-2) 0.5 0.0-0.[address] [facility] CenterBasophils # (Auto)2018-05-10 14:18:00* Test Item Value Reference Range Interpretation Comments Basophils # (Auto) (test code = 704-7) 0.0 0.0-0.1 [facility] Medical CenterAbsolute Immature Granulocyte (auto 2018-05-10 14:18:00* Test Item Value Reference Range Interpretation Comments Absolute Immature Granulocyte (auto (juan luis t code = Absolute Immature Granulocyte (auto) 0.04 0-0.1 [facility] Medical CenterBlood Wwxkomh3202-44-17 17:14:00* Test Item Value Reference Range Interpretation Comments Blood Culture (test code = 72307250) NO GROWTH AFTER 5 DAYS, FINAL REPORT [facility] CenterCHEST 2 OFYWC1078-00-46 17:55:00 [place] [address] Patient Name: JOHN WHELAN MR #: [id number] : 1935 Age/Sex: 82/M Req #: [id number] Adm Physician: Ordered by: DELGADO FONG MD Report #: [id number] Location: ER Room/Bed: Procedure: [id number] DX/CHEST 2 VIEWS Exam Date: Exam Time: REPORT STATUS: Signed EXAMINATION: CHEST 2 VIEWS INDICATION: Right lower leg/foot swelling. Sepsis. SEPSIS Y COMPARISON: Chest radiograph 11/26/2014 and 03/03/2018 FINDIN GS: PA and lateral views TUBES and LINES: None. LUNGS: Lungs are we ll inflated. Lungs are clear. There is no evidence of pneumonia or pulmonar y edema. PLEURA: No pleural effusion or pneumothorax. HEART AND MEDIA STINUM: The cardiomediastinal silhouette is unremarkable. BONES AND SO FT TISSUES: No acute osseous lesion. Sternotomy wires and CABG clips. Soft t issues are unremarkable. UPPER ABDOMEN: No free air under the diaphragm. IMPRESSION: No acute thoracic abnormality. Signed by: DR. Natalia Tapia MD on 03/15/2018 5:57 PM Dictated By: MERLIN TAPIA MD Electr onically Signed By: MERLIN TAPIA MD on 03/15/181756 Transcribed By: TANIKA osborn 03/15/181756 COPY TO: DELGADO FONG MD Magnesium Level 2018-03-15 17:49:00* Test Item Value Reference Range Interpretation Comments Magnesium Level (test code = 75316-8) 2.0 1.3-2.1 [facility] Medical CenterLactic Acid Bykwk2307-24-94 17:39:00* Test Item Value Reference Range Interpretation Comments Lactic Acid Level (test code = Lactic Acid Level) 18.8 4.5- 19.8 [facility] Medical CenterUrine AIA0467-03-19 17:19:00* Test Item Value Reference Range Interpretation Comments Urine WBC (test code = 5821-4) 6-10 0-[address] [facility] [address] Medical CenterUrine ATQ4739-55-03 17:19:00* Test Item Value Reference Range Interpretation Comments Urine RBC (test code = 70812-7) NONE 0-5 [facility] Medical CenterUrine Jnzahaht0495-03-56 17:19:00* Test Item Value Reference Range Interpretation Comments Urine Bacteria (test code = 96553-7) MODERATE NONE [facility] Epithelial Sopen6413-28-58 17:19:00 * Test Item Value Reference Range Interpretation Comments Urine Epithelial Cells (test code = 19656-8) MANY NONE [facility] Medical CenterUrine Esdhy4690-97-51 17:19:00* Test Item Value Reference Range Interpretation Comments Urine Mucus (test code = 8247-9) FEW RARE H [facility] Medical CenterUrine Ftnki9734-17-32 17:09:00* Test Item Value Reference Range Interpretation Comments Urine Color (test code = 5778-6) YELLOW YELLOW [facility] Medical CenterUrine Bkodxha4208-76-50 17:09:00* Test Item Value Reference Range Interpretation Comments Urine Clarity (test code = 29142-1) SL CLOUDY CLEAR H [facility] Medical CenterUrine Specific Zomxofy6217-00-73 17:09:00 * Test Item Value Reference Range Interpretation Comments Urine Specific [place] (test code = 5811-5) 1.025 1.010-1.[address] [facility] Medical CenterUrine cM9893-19-93 17:09:00* Test Item Value Reference Range Interpretation Comments Urine pH (test code = 42116-8) 6 5-7 [facility] Medical CenterUrine Leukocyte Yulnwqxe6095-02-91 17:09:00* Test Item Value Reference Range Interpretation Comments Urine Leukocyte Esterase (test code = 5799-2) TRACE NEGATIVE [facility] Jiwlkcn7936-95-93 17:09:00* Test Item Value Reference Range Interpretation Comments Urine Nitrite (test code = 79921-7) NEGATIVE NEGATIVE [facility] Medical CenterUrine Ezkkfuv7375-78-90 17:09:00* Test Item Value Reference Range Interpretation Comments Urine Protein (test code = 5804-0) TRACE NEGATIVE H [facility] Medical CenterUrine Glucose (UA)2018-03-15 17:09:00* Test Item Value Reference Range Interpretation Comments Urine Glucose (UA) (test code = 2349-9) NEGATIVE NEGATIVE [facility] Medical CenterUrine Jvnhgdu8930-27-64 17:09:00* Test Item Value Reference Range Interpretation Comments Urine Ketones (test code = 22855-9) TRACE NEGATIVE H [facility] CenterUrine Fdbrkbpviqtd6664-37-38 17:09:00* Test Item Value Reference Range Interpretation Comments Urine Urobilinogen (test code = 32042-7) 1 0.2-1 [facility] CenterUrine Juvwbywis2399-13-71 17:09:00* Test Item Value Reference Range Interpretation Comments Urine Bilirubin (test code = 1978-6) NEGATIVE NEGATIVE [facility] CenterUrine Fdzon6606-29-31 17:09:00* Test Item Value Reference Range Interpretation Comments Urine Blood (test code = 40677-4) NEGATIVE NEGATIVE [facility] CenterUrine Dvrwsky5024-30-27 07:20:00* Test Item Value Reference Range Interpretation Comments Urine Culture (test code = 630-4) Organism: PSEUDOMONAS AERUGINOSA [facility] CenterInfluenza Virus Types A,B Antigen 2018-03-03 22:01:00* Test Item Value Reference Range Interpretation Comments Influenza Virus Types A,B Antigen (test code = 91262-1) NEGATIVE NEGATIVE [facility] CenterGroup A Streptococcus Bwutds7744-66-32 22:01:00* Test Item Value Reference Range Interpretation Comments Group A Streptococcus Screen (test code = 94224-7) POSITIVE NEG ATIVE H [facility] CenterInfluenza Virus Types A,B Antigen 2018-03-03 22:01:00* Test Item Value Reference Range Interpretation Comments Influenza Virus Types A,B Antigen (test code = 51821-6) NEGATIVE NEGATIVE [facility] CenterGroup A Streptococcus Wpzrbl9114-59-33 22:01:00* Test Item Value Reference Range Interpretation Comments Group A Streptococcus Screen (test code = 81327-1) POSITIVE NEG ATIVE H [facility] CenterCT BRAIN [id number] 21:50:00 [facility] [place] [address] Patient Name: OJHN WHELAN MR #: [id number] : 1935 Age/Sex: 82/M Req #: [id number] Adm Physician: Ordered by: JERZY LISA MD Report #: [id number] Location: ER Room/Bed: Procedure: [id number] CT/CT BRAIN WO Exam Date: 03/03/18 Exam Time: 2050 REPORT STATUS: Signed Examination: CT head without contrast Clinical Indication: Fall; head injur y. Technique: Transaxial noncontrast images from the skull base through the ve rtex were obtained. Sagittal and coronal reformatted images were done. Dose modulation, iterative reconstruction, and/or weight based adjustment of the mA /kV was utilized to reduce the radiation dose to as low as reasonably achievab le. Comparison: 02/17/[address] Findings: Scalp/skull: No abn ormalities. Extra-axial spaces: No masses. No fluid collections. B rain sulci: Moderate volume loss. Ventricles: No hydrocephalus. Parenchym a: There are mild confluent areas of low-attenuation within subcortical and periventricular white matter, nonspecific, but could represent microvascular ischemic disease. 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 Punctate parenchymal calcification at the left superior parietal lobule, s econdary to remote infection. No masses, hemorrhage, or acute or chronic jefferson ical based vascular insults. Suprasellar region: No abnormalities. Cranio cervical junction: The foramen magnum is patent. No Chiari one malformation. Incidental findings: Atherosclerotic calcification of the cavernous and supraclinoid internal carotid arteries. Impression: No new acute int racranial finding when compared to prior head CT dated 02/17/2017. Sign ed by: Dr. John Harvey M.D. on 03/03/2018 9:53 PM Dictated By: NGOZI IQBAL MD 52 Transcribed By: TANIKA on 03/03/182152 COPY TO: JERZY LISA MD Urine [id number] 21:46:00* Test Item Value Reference Range Interpretation Comments Urine WBC (test code = 5821-4) NONE 0-5 [facility] CenterUrine ZQZ9138-09-97 21:46:00* Test Item Value Reference Range Interpretation Comments Urine RBC (test code = 03872-2) 0-5 0-5 [facility] CenterUrine Vmerjrqy2331-09-86 21:46:00* Test Item Value Reference Range Interpretation Comments Urine Bacteria (test code = 40356-1) RARE NONE [facility] Medical CenterUrine Epithelial Jbzqb9127-54-41 21:46:00 * Test Item Value Reference Range Interpretation Comments Urine Epithelial Cells (test code = 66370-7) RARE NONE [facility] CenterCT CERVICAL SPINE [id number] 21:45:00 [place] [address] Patient Name: JOHN WHELAN MR #: [id number] DO B: 1935 Age/Sex: 82/M Req #: [id number] Adm Physici an: Ordered by: JERZY LISA MD Report #: [id number] Location: ER Room/ Bed: Procedure: [id number] CT/CT CERVICAL SPINE WO Ex am Date: 03/03/18 Exam Time: 2050 REPORT STATUS : Signed Examination: CT CERVICAL SPINE WITHOUT CONTRAST HISTORY:Neck in jury and pain. Fall. COMPARISON:02/17/[address] TECHNIQUE: Mult idetector helical axial images were obtained without contrast from the foramen magnum to T1. Coronal and sagittal reformatted images were done. Bone and so ft tissue windows were evaluated. Dose modulation, iterative reconstruction, and/or weight based adjustment of the mA/kV was utilized to reduce the radiati on dose to as low as reasonably achievable. FINDINGS: Alignment:Norm al alignment and lordosis. Vertebrae: Normal height and density. No acute fra cture, infection or neoplasm. Disc space heights: Normal height. Caliber o f spinal canal: Developmentally normal. Posterior fossa and craniocervical junction: Foramen magnum patent. No Chiari 1 malformation. Soft tissues: Left carotid artery stent. Degenerative changes: Unchanged diffuse disc o steophyte complex at C6-C7 with severe bilateral foramina narrowing. No canal stenosis. The remaining levels demonstrate no disc bulge/ herniation or canal stenosis. IMPRESSION: No new acute abnormalities when compared to prior c ervical spine CT dated 02/17/2017. Signed by: Dr. John Harvey M.D. o anurag 03/03/2018 9:49 PM Dictated By: JOHN IQBAL MD [facility] Signed By: JOHN IQBAL MD on 03/03/182148 Transcribed By: RADHA DOYLE on 03/03/182148 COPY TO: JERZY LISA MD CHEST SINGLE (PORTABLE)2018-03-03 21:41:00 [place] [address] Patient Name: JOHN WHELAN MR #: [id number] : 1935 Age/Sex: 82/M Req #: [id number] Adm Physician: Ordered by: JERZY LISA MD Report #: [id number] Location: ER Room/Bed: Procedure: [id number] DX/CHEST SINGLE (PORTABLE) Exam Date: 03/03/18 Exam Time: 2105 REPORT STA TUS: Signed EXAMINATION: CHEST SINGLE (PORTABLE) INDICATION: Fever, sepsis COMPARISON: 11/26/2014 FINDINGS: TUBES and LI BRIANA: None. LUNGS: Lungs are well inflated. Lungs are clear. There is n o evidence of pneumonia or pulmonary edema. PLEURA: No pleural effusion or pneumothorax. HEART AND MEDIASTINUM: Patient is status post CABG proced ure. There are atherosclerotic calcifications within the aorta. BONES AND SOFT TISSUES: No acute osseous lesion. Soft tissues are unremarkable. UPPER ABDOMEN: No free air under the diaphragm. IMPRESSION: No acute thoracic abnormality. Signed by: Dr. Alexis Matute M.D. on 03/03/2018 9:42 PM Dictated By: ALEXIS PABLO MD 41 Transcribed By: TANIKA on 03/03/182141 COPY TO: JERZY LISA MD Urine Tvifm9651-36-13 21:40:00* Test Item Value Reference Range Interpretation Comments Urine Color (test code = 5778-6) YELLOW YELLOW [facility] CenterUrine Cjopval4074-25-81 21:40:00* Test Item Value Reference Range Interpretation Comments Urine Clarity (test code = 05021-9) CLEAR CLEAR [facility] CenterUrine Specific Liqvaky6467-84-15 21:40:00 * Test Item Value Reference Range Interpretation Comments Urine Specific [place] (test code = 5811-5) 1.010 1.010-1.[address] CenterUrine [id number] 21:40:00* Test Item Value Reference Range Interpretation Comments Urine pH (test code = 95666-3) 7 5-7 [facility] CenterUrine Leukocyte Zruuajkk9841-68-84 21:40:00* Test Item Value Reference Range Interpretation Comments Urine Leukocyte Esterase (test code = 5799-2) NEGATIVE NEGATIVE [facility] CenterUrine Syniaxd3951-37-21 21:40:00* Test Item Value Reference Range Interpretation Comments Urine Nitrite (test code = 17706-5) NEGATIVE NEGATIVE [facility] CenterUrine Wklfkpe4784-83-49 21:40:00* Test Item Value Reference Range Interpretation Comments Urine Protein (test code = 5804-0) NEGATIVE NEGATIVE [facility] CenterUrine Glucose (UA)2018-03-03 21:40:00* Test Item Value Reference Range Interpretation Comments Urine Glucose (UA) (test code = 2349-9) NEGATIVE NEGATIVE [facility] CenterUrine Znnqnpb9256-74-79 21:40:00* Test Item Value Reference Range Interpretation Comments Urine Ketones (test code = 00479-9) NEGATIVE NEGATIVE [facility] Wbquacffwtmv5337-81-93 21:40:00* Test Item Value Reference Range Interpretation Comments Urine Urobilinogen (test code = 13406-2) 0.2 0.2-1 [facility] CenterUrine Rxyhdboch7597-25-13 21:40:00* Test Item Value Reference Range Interpretation Comments Urine Bilirubin (test code = 1978-6) NEGATIVE NEGATIVE [facility] Fliic2999-31-88 21:40:00* Test Item Value Reference Range Interpretation Comments Urine Blood (test code = 02169-5) NEGATIVE NEGATIVE [facility] CenterDifferential Total Cells Counted 2018-03-03 21:39:00* Test Item Value Reference Range Interpretation Comments Differential Total Cells Counted (test code = Differen tial Total Cells Counted) 100 [facility] CenterNeutrophils % (Manual)2018-03-03 21:39:00 * Test Item Value Reference Range Interpretation Comments Neutrophils % (Manual) (test code = 64560-6) 94 40-[address] [facility] CenterLymphocytes % (Manual)2018-03-03 21:39:00 * Test Item Value Reference Range Interpretation Comments Lymphocytes % (Manual) (test code = 737-7) 1 19-[address] [facility] CenterMonocytes % (Manual)2018-03-03 21:39:00* Test Item Value Reference Range Interpretation Comments Monocytes % (Manual) (test code = 744-3) 5 3.4-9.0 [facility] CenterPlatelet Necllxpf3396-73-92 21:39:00* Test Item Value Reference Range Interpretation Comments Platelet Estimate (test code = 30252-3) SLIGHTLY DECREASED [facility] CenterPlatelet Morphology Ruczkrg4082-55-26 21:39:00* Test Item Value Reference Range Interpretation Comments Platelet Morphology Comment (test code = 88886-7) NORMAL [facility] CenterRed Cell Morphology Cwkaobi5730-49-17 21:39:00* Test Item Value Reference Range Interpretation Comments Red Cell Morphology Comment (test code = 6742-1) NORMAL [facility] CenterDifferential Total Cells Counted 2018-03-03 21:39:00* Test Item Value Reference Range Interpretation Comments Differential Total Cells Counted (test code = Differmaria del rosario tial Total Cells Counted) 100 [facility] CenterNeutrophils % (Manual)2018-03-03 21:39:00 * Test Item Value Reference Range Interpretation Comments Neutrophils % (Manual) (test code = 19279-6) 94 40-[address] [facility] CenterLymphocytes % (Manual)2018-03-03 21:39:00 * Test Item Value Reference Range Interpretation Comments Lymphocytes % (Manual) (test code = 737-7) 1 19-[address] [facility] CenterMonocytes % (Manual)2018-03-03 21:39:00* Test Item Value Reference Range Interpretation Comments Monocytes % (Manual) (test code = 744-3) 5 3.4-9.0 [facility] CenterPlatelet Yukpfhse1567-16-55 21:39:00* Test Item Value Reference Range Interpretation Comments Platelet Estimate (test code = 59804-2) SLIGHTLY DECREASED [facility] CenterPlatelet Morphology Bswlxgh7716-17-57 21:39:00* Test Item Value Reference Range Interpretation Comments Platelet Morphology Comment (test code = 90753-6) NORMAL [facility] CenterRed Cell Morphology Xuegwme4700-25-26 21:39:00* Test Item Value Reference Range Interpretation Comments Red Cell Morphology Comment (test code = 6742-1) NORMAL [facility] CenterCreatine Kinase [id number] 21:16:00* Test Item Value Reference Range Interpretation Comments Creatine Kinase MB (test code = 94933-1) 0.70 0-5.0 [place] [id number] 21:16:00* Test Item Value Reference Range Interpretation Comments Troponin I (test code = REQ1971) -0.001 0-0.300 [facility] CenterThyroid Stimulating Hormone (TSH) 2018-03-03 21:16:00* Test Item Value Reference Range Interpretation Comments Thyroid Stimulating Hormone (TSH) (test code = 65572-3) 0.782 0.350-4.940 [facility] CenterCreatine Kinase [id number] 21:16:00* Test Item Value Reference Range Interpretation Comments Creatine Kinase MB (test code = 41832-8) 0.70 0-5.0 [place] [id number] 21:16:00* Test Item Value Reference Range Interpretation Comments Troponin I (test code = NYL5977) < 0.001 0-0.300 [facility] CenterThyroid Stimulating Hormone (TSH) 2018-03-03 21:16:00* Test Item Value Reference Range Interpretation Comments Thyroid Stimulating Hormone (TSH) (test code = 44419-0) 0.782 0.350-4.940 [facility] CenterB-Type Natriuretic Pfbxkdw8880-80-40 20:54:00* Test Item Value Reference Range Interpretation Comments B-Type Natriuretic Peptide (test code = 95935-3) 193.9 0-[address] [facility] CenterB-Type Natriuretic Ljmiivb5366-24-36 20:54:00* Test Item Value Reference Range Interpretation Comments B-Type Natriuretic Peptide (test code = 73252-5) 193.9 0-100 [facility] Bhanh0684-32-58 20:49:00* Test Item Value Reference Range Interpretation Comments Sodium Level (test code = 2951-2) 140 136-145 [facility] CenterPotassium Wxnvm0859-68-26 20:49:00* Test Item Value Reference Range Interpretation Comments Potassium Level (test code = 2823-3) 3.8 3.5-5.1 [facility] CenterChloride Kogvi8170-83-73 20:49:00* Test Item Value Reference Range Interpretation Comments Chloride Level (test code = 2075-0) 107 98-107 [facility] CenterCarbon Dioxide Ssepc1551-73-46 20:49:00* Test Item Value Reference Range Interpretation Comments Carbon Dioxide Level (test code = 2028-9) 24 22-29 [facility] CenterAnion Orb2899-77-09 20:49:00* Test Item Value Reference Range Interpretation Comments Anion Gap (test code = 85599-5) 12.8 8-16 [facility] CenterBlood Urea Shoxmaeh1228-53-44 20:49:00* Test Item Value Reference Range Interpretation Comments Blood Urea Nitrogen (test code = 3094-0) 14 7-26 [facility] CenterCreatinine2018-10-06 20:49:00* Test Item Value Reference Range Interpretation Comments Creatinine (test code = 2160-0) 1.15 0.72-1.25 [facility] CenterBUN/Creatinine Yesmm6386-13-59 20:49:00* Test Item Value Reference Range Interpretation Comments BUN/Creatinine Ratio (test code = 3097-3) 12 6-25 [facility] CenterEstimat Glomerular Filtration Rate 2018-03-03 20:49:00* Test Item Value Reference Range Interpretation Comments Estimat Glomerular Filtration Rate (test code = 688759943) 60- >60 Ranges were taken from the National Kidney Disease Education Program and the [facility] systemal Kidney Foundation literature.Reference ranges:60 or greater: Gqlyfv24-84 ( for 3 consecutive months): Chronic kidney disease 15 or less: Kidney failureSt. Luke's Health – Baylor St. Luke's Medical CenterGlucose Givsv1483-22-79 20:49:00* Test Item Value Reference Range Interpretation Comments Glucose Level (test code = JKN5382) 128 74-[address] [facility] CenterCalcium Ulqap5031-21-26 20:49:00* Test Item Value Reference Range Interpretation Comments Calcium Level (test code = 11458-6) 9.3 8.4-10.2 [facility] CenterMagnesium Gtdqx2777-95-08 20:49:00* Test Item Value Reference Range Interpretation Comments Magnesium Level (test code = 56563-0) 1.5 1.3-2.1 [facility] CenterTotal Mextcvtzh7007-37-05 20:49:00* Test Item Value Reference Range Interpretation Comments Total Bilirubin (test code = 1975-2) 1.3 0.2-1.[address] [facility] Medical CenterAspartate Amino Transf (AST/SGOT) 2018-03-03 20:49:00* Test Item Value Reference Range Interpretation Comments Aspartate Amino Transf (AST/SGOT) (test code = Aspartate Amino Transf (AST/SGOT)) 50 5-[address] [facility] CenterAlanine Aminotransferase (ALT/SGPT) 2018-03-03 20:49:00* Test Item Value Reference Range Interpretation Comments Alanine Aminotransferase (ALT/SGPT) (test code = 1742-6) 41 0-55 [facility] Rpqkgnu8400-54-45 20:49:00* Test Item Value Reference Range Interpretation Comments Total Protein (test code = 2885-2) 6.4 6.5-8.[address] CenterAlbumin2018-10-06 20:49:00* Test Item Value Reference Range Interpretation Comments Albumin (test code = 1751-7) 3.5 3.5-5.0 [facility] CenterGlobulin2018-10-06 20:49:00* Test Item Value Reference Range Interpretation Comments Globulin (test code = 77875-0) 2.9 2.3-3.5 [facility] CenterAlbumin/Globulin Edjno6503-00-35 20:49:00 * Test Item Value Reference Range Interpretation Comments Albumin/Globulin Ratio (test code = 1759-0) 1.2 0.8-2.0 [facility] CenterAlkaline Mwgznnomwtn7475-85-88 20:49:00* Test Item Value Reference Range Interpretation Comments Alkaline Phosphatase (test code = 6768-6) 71 40-150 [facility] CenterCreatine Uzahza3551-72-86 20:49:00* Test Item Value Reference Range Interpretation Comments Creatine Kinase (test code = 2157-6) 69 30-200 [facility] CenterAmylase Duqli7013-96-92 20:49:00* Test Item Value Reference Range Interpretation Comments Amylase Level (test code = 1798-8) 31 25-125 [facility] CenterLipase2018-10-06 20:49:00* Test Item Value Reference Range Interpretation Comments Lipase (test code = 3040-3) [address] [facility] CenterCreatine Mgzetw0259-49-62 20:49:00* Test Item Value Reference Range Interpretation Comments Creatine Kinase (test code = 2157-6) 69 30-200 [facility] CenterAmylase Uoayd7923-49-16 20:49:00* Test Item Value Reference Range Interpretation Comments Amylase Level (test code = 1798-8) 31 25-125 [facility] CenterLipase2018-10-06 20:49:00* Test Item Value Reference Range Interpretation Comments Lipase (test code = 3040-3) [address] [facility] CenterLactic Acid Umpqb7310-40-12 20:47:00* Test Item Value Reference Range Interpretation Comments Lactic Acid Level (test code = Lactic Acid Level) 14.7 4.5- 19.8 [facility] Medical CenterAmmonia2018-10-06 20:46:00* Test Item Value Reference Range Interpretation Comments Ammonia (test code = 41514-9) 65 -123 [facility] CenterAmmonia2018-10-06 20:46:00* Test Item Value Reference Range Interpretation Comments Ammonia (test code = 80539-0) 65 -123 [facility] CenterProthrombin Qzwx1402-25-99 20:38:00* Test Item Value Reference Range Interpretation Comments Prothrombin Time (test code = 5902-2) 14.5 11.9-14.5 [facility] CenterProthromb Time International Ratio 2018-03-03 20:38:00* Test Item Value Reference Range Interpretation Comments Prothromb Time International Ratio (test code = 6301-6) 1.04 Oral Anticoagulant Therapy INR Values:1. Low Intensity Therapy 1.5 - 2.02 . Moderate Intensity Therapy 2.0 - 3.03. High Intensity Therapy(1) 2.5 - 3. 54. High Intensity Therapy(2) 3.0 - 4.05. Panic Value INR > 5.0 [facility] Medical CenterActivated Partial Thromboplast Time 2018-03-03 20:38:00* Test Item Value Reference Range Interpretation Comments Activated Partial Thromboplast Time (test code = 03285-6) 30.8 23.8-35.5 [facility] CenterProthrombin Eobt2998-04-58 20:38:00* Test Item Value Reference Range Interpretation Comments Prothrombin Time (test code = 5902-2) 14.5 11.9-14.5 [facility] CenterProthromb Time International Ratio 2018-03-03 20:38:00* Test Item Value Reference Range Interpretation Comments Prothromb Time International Ratio (test code = 6301-6) 1.04 Oral Anticoagulant Therapy INR Values:1. Low Intensity Therapy 1.5 - 2.02 . Moderate Intensity Therapy 2.0 - 3.03. High Intensity Therapy(1) 2.5 - 3. 54. High Intensity Therapy(2) 3.0 - 4.05. Panic Value INR > 5.0 [facility] Medical CenterActivated Partial Thromboplast Time 2018-03-03 20:38:00* Test Item Value Reference Range Interpretation Comments Activated Partial Thromboplast Time (test code = 99458-5) 30.8 23.8-35.5 [facility] CenterWhite Blood Jxxnw5086-34-55 20:28:00* Test Item Value Reference Range Interpretation Comments White Blood Count (test code = 6690-2) 11.56 4.8-10.[address] [facility] CenterRed Blood Ftxqq4385-05-14 20:28:00* Test Item Value Reference Range Interpretation Comments Red Blood Count (test code = 789-8) 4.50 4.3-5.7 [facility] CenterHemoglobin2018-10-06 20:28:00* Test Item Value Reference Range Interpretation Comments Hemoglobin (test code = 76860-1) 12.8 14.0-18.[address] CenterHematocrit2018-10-06 20:28:00* Test Item Value Reference Range Interpretation Comments Hematocrit (test code = 4544-3) 37.4 38.2-49.[address] CenterMean Corpuscular Nsxqjx4301-51-06 20:28:00* Test Item Value Reference Range Interpretation Comments Mean Corpuscular Volume (test code = 787-2) 83.1 81-99 [facility] CenterMean Corpuscular Czuhzaecct3425-01-07 20:28:00* Test Item Value Reference Range Interpretation Comments Mean Corpuscular Hemoglobin (test code = 785-6) 28.4 28-32 [facility] Medical CenterMean Corpuscular Hemoglobin Concent 2018-03-03 20:28:00* Test Item Value Reference Range Interpretation Comments Mean Corpuscular Hemoglobin Concent (test code = 786-4) 34.2 31-35 [facility] CenterRed Cell Distribution Srgqz5849-06-65 20:28:00* Test Item Value Reference Range Interpretation Comments Red Cell Distribution Width (test code = 30623-2) 13.8 11.7 -14.4 [facility] Medical CenterPlatelet Wonyx3956-83-76 20:28:00* Test Item Value Reference Range Interpretation Comments Platelet Count (test code = 777-3) 121 140-[address] [facility] CenterNeutrophils (%) (Auto)2018-03-03 20:28:00 * Test Item Value Reference Range Interpretation Comments Neutrophils (%) (Auto) (test code = 13235-2) 92.5 38.7-80.[address] CenterLymphocytes (%) (Auto)2018-03-03 20:28:00 * Test Item Value Reference Range Interpretation Comments Lymphocytes (%) (Auto) (test code = 736-9) 1.7 18.0-39.[address] [facility] CenterMonocytes (%) (Auto)2018-03-03 20:28:00* Test Item Value Reference Range Interpretation Comments Monocytes (%) (Auto) (test code = 5905-5) 4.9 4.4-11.3 [facility] CenterEosinophils (%) (Auto)2018-03-03 20:28:00 * Test Item Value Reference Range Interpretation Comments Eosinophils (%) (Auto) (test code = 713-8) 0.0 0.0-6.0 [facility] CenterBasophils (%) (Auto)2018-03-03 20:28:00* Test Item Value Reference Range Interpretation Comments Basophils (%) (Auto) (test code = 706-2) 0.1 0.0-1.0 [facility] CenterIM GRANULOCYTES %2018-03-03 20:28:00* Test Item Value Reference Range Interpretation Comments IM GRANULOCYTES % (test code = IM GRANULOCYTES %) 0.8 0.0- 1.0 [facility] CenterNeutrophils # (Auto)2018-03-03 20:28:00* Test Item Value Reference Range Interpretation Comments Neutrophils # (Auto) (test code = 751-8) 10.7 2.1-6.[address] CenterLymphocytes # (Auto)2018-03-03 20:28:00* Test Item Value Reference Range Interpretation Comments Lymphocytes # (Auto) (test code = 72872-0) 0.2 1.0-3.[address] [facility] CenterMonocytes # (Auto)2018-03-03 20:28:00* Test Item Value Reference Range Interpretation Comments Monocytes # (Auto) (test code = 742-7) 0.6 0.2-0.8 [facility] CenterEosinophils # (Auto)2018-03-03 20:28:00* Test Item Value Reference Range Interpretation Comments Eosinophils # (Auto) (test code = 711-2) 0.0 0.0-0.4 [facility] CenterBasophils # (Auto)2018-03-03 20:28:00* Test Item Value Reference Range Interpretation Comments Basophils # (Auto) (test code = 704-7) 0.0 0.0-0.1 [facility] CenterAbsolute Immature Granulocyte (auto 2018-03-03 20:28:00* Test Item Value Reference Range Interpretation Comments Absolute Immature Granulocyte (auto (juan luis t code = Absolute Immature Granulocyte (auto) 0.09 0-0.1 [facility] Medical CenterFOOT RIGHT COMPLETE [facility] [address] [place] [address] Patient Name: JOHN WHELAN MR #: [id number] : 1935 Age/Sex: 81/M Req #: [id number] Adm Physician: Ordered by: MARQUEZ HORAN MD Report #: [id number] Location: [facility] Room/Bed: Procedure: [id number] DX/FOOT RIGHT COMPLETE Ex am Date: 03/20/17 Exam Time: 1250 REPORT STATUS : Signed PROCEDURE: FOOT RIGHT COMPLETE TECHNIQUE: AP, lateral and obli que views right foot INDICATION: Right foot pain COMPARISON: None. FINDINGS: The right foot in the mid regional skeleton are intact in anatomic alignment. Mild diffuse demineralization. Juxta articular erosions of the second, third and fourth metatarsal heads. Questionable small juxta-articular erosions at the great toe proximal phalanx head. Small plantar spur. Mild re gional arteriosclerosis. CONCLUSION: Juxta-articular erosions of the second, third and fourth metatarsal heads. Please correlate for erosive arth ropathy. Dictated by: Ashlyn Rosales M.D. on 03/20/2017 at 1 4:00 Electronically approved by: Ashlyn Rosales M.D. on 03/20/2017 at 14:00 Dictated By: ASHLYN ROSALES MD 1400 Transcribed By: FELIPE on 03/20/17 1400 COPY TO: MARQUEZ HORAN MD CT BRAIN WO [place] [address] Patient Name: JOHN WHELAN MR #: [id number] : 1935 Age/Sex: 81/M Req #: [id number] Adm Physician: Ordered by: DIONTE SORENSON NON PROFIT [employer] Report #: [id number] Location: ER Room/Bed: Procedure: [id number] CT/CT BRAIN WO Exam Date : Exam Time: REPORT STATUS: Signed History :Fall Comparison studies:CT head 03/09/2016 Technique: Axial images wer e obtained from the skull base to the vertex. Coronal and sagittal images jae nstructed from the axial data. Intravenous contrast: None Findings: Scalp/skull: No abnormalities. Extra-axial spaces: No masses. No flu id collections. Brain sulci: Moderately prominent. Ventricles: Moderate c ompensatory dilatation. No hydrocephalus. Parenchyma: Scattered and conf luent hypodensities in the supratentorial white matter are small vessel ischem ic changes. 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 Punct ate parenchymal calcification at the left superior parietal lobule, secondary to remote infection No masses, hemorrhage, acute or chronic cortical vascular insults. Sellar/suprasellar region: No abnormalities. Craniocervical junc tion: Patent foramen magnum. No Chiari one malformation. Incidental findin gs: Atherosclerotic calcifications in the carotid siphons . Impression: No acute abnormalities. No significant change from previous examination Chronic findings: 1. Moderate generalized volume loss. 2. Moderate suprat entorial white matter small vessel ischemic changes. Signed by: DR Matt Delgado M.D. on 02/17/2017 3:21 PM Dictated By: MATT Granados 1521 Transcribed By: TANIKA on 02/17/17 1521 COPY TO: DIONTE SORENSON NON PROFIT JOB TITLES CT CERVICAL SPINE [place] [address] Patient Name: JOHN WHELAN MR #: [id number] : 1935 Age/Sex: 81/M Req #: [id number] Adm Physician: Ordered by: DIONTE SORENSON NON PROF[employer] Report #: [id number] Location: ER Room/Bed: Procedure: [id number] CT/CT CERVICAL SPINE WO Exam Date: 02/17/17 Exam Time: 1441 REPORT STAT US: Signed History: Fall Comparison studies: None Technique: Axial images were obtained through the cervical region. Coronal and sagittal images reconstructed from the axial data. Intravenous contrast: None Findings: Atlantoaxial articulation: Intact Alignment: Normal lordosis No scoliosis. Cervicomedullary junction: No abnormalities. Patent foramen magnum. Soft tissues: No gross abnormalities. Vertebrae: No fractures, neoplasm or i nfection. Degenerative changes: Mild facet hypertrophy and uncinate pr ocess hypertrophy results in no significant canal stenosis and mild bilateral foraminal narrowing at the mid cervical spine. Atherosclerotic changes of the carotid bulbs. Left carotid bulb stent is partially visualized. IMPR ESSION: 1. No acute cervical abnormality. 2. Cannot exclude ligament , spinal cord and or vascular abnormalities on the basis of this examination. Signed by: DR Matt Delgado M.D. on 02/17/2017 4:01 PM Dictat ed By: MATT CATHERINE MD 160 Transcribed By: TANIKA on 02/17/17 160 COPY TO: DIONTE SORENSON NP
--- OUTSIDE RECORDS SUMMARY | 2020-01-02 04:19 | XMS REPORT | Clinical Summary ---
Author Author [facility] [facility] Address Unknown Phone Unavailable Care Team Providers Care Sand Plant Attendant Name Role Phone Christian Tanner MD PCP [...] Use Types Packs/Day Years Used Never Smoker Drinks/Week oz/Week Comments Alcohol Use No Sex Assigned at Date Recorded Not [...] (1 of 2 - PCV13) INFLUENZA VACCINE 12/28/2019 Results Not on fileafter 01/01/2019 Insurance Type Payer Benefit Subscriber ID Effective Phone Address Plan / Dates Group Medicare MEDICARE MEDICARE xxxxxxxxxx 1999-P [place], PART [place] AND resent [place] PPO BCBS BCBS xxxxxxxxxxxx 2015-P CHOICE resent PPO/[employer] [place] PPO Advance Directives For more information, please contact: [phone] 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 Adult Child/Children
--- OUTSIDE RECORDS SUMMARY | 2020-01-02 04:19 | XMS REPORT | Continuity of Care Document ---
Author Author [employer] Information Exchange Address Unknown Phone Unavailable Care Team Providers Care Lay Out And Detail Drafter Name Role Phone [employer] Unavailable Un available Problems Problem Status Onset Date Classification Date Reported Comments Source Dilated cardiomyopathy 07/14/2018 01/22/2019 [facility] DUAL CHAMBER ICD IMPLANT Active 06/20/2018 [facility] Discharge Diagnosis: Fall from standing 04/02/2014 04/05/2014 [facility] Discharge Diagnosis: Closed head injury 04/02/2014 04/05/2014 [facility] FALL Active 04/02/2014 [facility] Dementia with behavioral disturbance (disorder) Resolved Problem 01/22/2019 [facility] Depression - motion (qualifier value) Active Problem [facility] Hallucinations (finding) Resol keon Problem [facility] Hypertensive disorder, systemic arterial (disorder) Active Problem 01/22/2019 [facility] Incoordination (finding) Active Problem 01/22/2019 [facility] Posttraumatic stress disorder (disorder) Active Problem 01/22/2019 [facility] Unknown (qualifier value) Reso lved Problem [facility] Asthenia (finding) Active Problem 01/22/2019 [facility] 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) Active Problem 01/22/2019 occ at home [facility] Hearing loss (finding) Active Problem 01/22/2019 left deaf [facility] Impaired mobility (finding) Ac tive Problem [facility] Peripheral vascular disease (disorder) Active Problem RLE [facility] Visual impairment (disorder) A ctive Problem right [facility] Ischemic cardiomyopathy 01/22/2019 [facility] Chronic systolic (congestive) heart failure 01/22/2019 [facility] Hypotension, unspecified 01/22/2019 [facility] Bradycardia, unspecified 01/22/2019 [facility] Unspecified hearing loss, left ear 01/22/2019 [facility] Blindness, one eye, unspecified eye 01/22/2019 [facility] Other specified anxiety disorders 01/22/2019 [facility] Presence of aortocoronary bypass graft 01/22/2019 [facility] predatory animal exterminator (current) use of antithromboti cs/antiplatelets 01/22/2019 [facility] predatory animal exterminator (current) use of aspirin 01/22/2019 [facility] Other meterman (current) drug therapy 01/22/2019 [facility] Medications Medication Details Route Status Patient Instructions Ordering Provider Order Date Source acetaminophen-codeine #3 Notes : Do not exceed 4gm/day of acetaminophen. (Same as: Tylenol with Codeine # 3) Inactive 07/05/2018 [facility] metoprolol 25 mg oral tablet, extended release 25 mg = 1 tab, PO, Daily, # 90 tab, 3 Refill(s) Active 07/04/2018 [facility] Furosemide 40 MG Oral Tablet 4 0 mg = 1 tab, PO, Daily, # 90 tab, 1 Refill(s) Active 07/04/2018 [facility] gabapentin 100 MG Oral Capsule 100 mg = 1 cap, PO, BID, # 90 cap, 1 Refill(s) Active 07/04/2018 [facility] Vitamin D3 2000 intl units oral capsule 2,000 IntlUnit = 1 cap, PO, Daily, # 100 cap, 3 Refill(s) Active 07/04/2018 [facility] Levetiracetam 1000 MG Oral Tablet 1,000 mg = 1 tab, PO, BID, # 60 tab, 2 Refill(s) Active 07/04/2018 [facility] QUEtiapine 50 mg oral tablet 1 00 mg = 2 tab, PO, Bedtime, # 90 tab, 0 Refill(s) Active 07/04/2018 [facility] prazosin 2 mg oral capsule 2 m g = 1 cap, PO, Bedtime, 0 Refill(s) Active 07/04/2018 [facility] sertraline 50 mg oral tablet 5 0 mg = 1 tab, PO, Bedtime, # 90 tab, 0 Refill(s) Active 07/04/2018 [facility] atorvastatin 20 mg, PO, Bedtim e, 0 Refill(s) Active 07/04/2018 [facility] Vitamin B12 1000 mcg oral tablet 1,000 microgram = 1 tab, PO, Daily, # 100 tab, 3 Refill(s) Active 07/04/2018 [facility] clopidogrel 75 mg oral tablet 75 mg = 1 tab, PO, Daily, # 90 tab, 3 Refill(s) Active 07/04/2018 [facility] amLODIPine 10 mg oral tablet 1 0 mg = 1 tab, PO, Daily, # 90 tab, 1 Refill(s) Active 07/04/2018 [facility] Allergies, Adverse Reactions, Alerts Substance Category Reaction Severity Reaction type Status Date Reported Comments Source No Known Medication Allergies Assertion Drug aller gy [facility] Immunizations No Data Provided for This Section [...] should be multiplied by the estimated BMI. [facility] CHEM PANEL CO2 24 24 - 32 07/04/2018 [facility] CHEM PANEL Calcium Lvl 9.2 8.5 - 10.5 07/04/2018 [facility] CHEM PANEL Glucose Lvl 94 70 - 99 07/04/2018 [facility] CHEM PANEL Creatinine Lvl 1.21 0.50 - 1.40 07/04/2018 [facility] CHEM PANEL BUN 17 7 - 22 07/04/2018 [facility] CHEM PANEL Potassium Lvl 3.9 3.5 - 5.1 07/04/2018 [facility] CHEM PANEL Sodium Lvl 141 135 - 145 07/04/2018 [facility] CHEM PANEL Chloride Lvl 107 95 - 109 07/04/2018 [facility] CHEM PANEL AGAP 13.9 10.0 - 20.0 07/04/2018 [facility] ELECTROLYTES AGAP 13.9 10.0 - 20.0 07/04/2018 [facility] ELECTROLYTES Glucose Lvl 94 70 - 99 07/04/2018 [facility] ELECTROLYTES BUN 17 7 - 22 07/04/2018 [facility] ELECTROLYTES Creatinine Lvl 1.2 1 0.50 - 1.40 07/04/2018 [facility] ELECTROLYTES Sodium Lvl 141 135 - 145 07/04/2018 [facility] ELECTROLYTES Potassium Lvl 3.9 3.5 - 5.1 07/04/2018 [facility] ELECTROLYTES Chloride Lvl 107 95 - 109 07/04/2018 [facility] ELECTROLYTES CO2 24 24 - 32 07/04/2018 [facility] ELECTROLYTES Calcium Lvl 9.2 8.5 - 10.5 07/04/2018 [facility] ELECTROLYTES eGFR 55 07/04/2018 Result Comment: The eGFR [...] should be multiplied by the estimated BMI. [facility] Lymphocytes # 0.9 1.0 - 5.5 07/04/2018 [facility] Neutrophils # 4.8 1.5 - 8.1 07/04/2018 [facility] Eosinophils # 0.3 0.0 - 0.5 07/04/2018 [facility] Monocytes # 0.6 0.0 - 0.8 07/04/2018 [facility] Lymphocytes 13.6 20.0 - 40.0 07/04/2018 [facility] Segs 72.3 45.0 - 75.0 07/04/2018 [facility] Monocytes 8.9 2.0 - 12.0 07/04/2018 [facility] Basophils 0.6 0.0 - 1.0 07/04/2018 [facility] Eosinophils 4.6 0.0 - 4.0 07/04/2018 [facility] MCHC 34.1 32.0 - 36.0 07/04/2018 [facility] MCH 27.6 27.0 - 31.0 07/04/2018 [facility] HEMATOLOGY Platelet 154 133 - 450 07/04/2018 [facility] HEMATOLOGY RDW 15.2 11.5 - 14.5 07/04/2018 [facility] HEMATOLOGY MPV 7.8 7.4 - 10.4 07/04/2018 [facility] HEMATOLOGY MCV 81.0 80.0 - 94.0 07/04/2018 [facility] HEMATOLOGY RBC 5.16 4.70 - 6.10 07/04/2018 [facility] Hgb 14.2 14.0 - 18.0 07/04/2018 [facility] HEMATOLOGY WBC 6.7 3.7 - 10.4 07/04/2018 [facility] HEMATOLOGY Hct 41.7 42.0 - 54.0 07/04/2018 [facility] PTT 29.2 22.9 - 35.8 07/04/2018 [facility] HEMATOLOGY PT 12.0 12.0 - 14.7 07/04/2018 [facility] INR 0.90 0.85 - 1.17 07/04/2018 [facility] Pathology Reports No Data Provided for This Section Diagnostic Reports Report Value Date Source Chest 1 v for Placement DX Cli nical indication: Line Placement - Status post PPM/ICD [...] cardiopulmonary abnormality is seen. SL: DIANELYS 07/05/2018 [facility] Consultation Notes No Data Provided for This Section Discharge Summaries No Data Provided for This Section History and Physicals No Data Provided for This Section Vital Signs Vital Sign Value Date Comments Source Systolic (mm Hg) 137 07/05/2018 [facility] Diastolic (mm Hg) 62 07/05/2018 [facility] Respitory Rate 15 07/05/2018 [facility] Systolic (mm Hg) 127 07/05/2018 [facility] Diastolic (mm Hg) 60 07/05/2018 [facility] Respitory Rate 22 07/05/2018 [facility] Respitory Rate 20 07/05/2018 [facility] Systolic (mm Hg) 130 07/05/2018 [facility] Diastolic (mm Hg) 63 07/05/2018 [facility] Temperature Oral (F) 97.7 F 07/05/2018 [facility] Temperature Oral (F) 97.9 F 07/05/2018 [facility] Temperature Oral (F) 98.5 F 07/04/2018 [facility] Heart Rate 71 07/04/2018 [facility] BMI Calculated 30.85 07/04/2018 [facility] Weight 84.091 07/04/2018 [facility] Height 165.1 cm 07/04/2018 [facility] Heart Rate 55 04/02/2014 [facility] Respitory Rate 17 04/02/2014 [facility] Systolic (mm Hg) 127 04/02/2014 [facility] Diastolic (mm Hg) 67 04/02/2014 [facility] Diastolic (mm Hg) 69 04/02/2014 [facility] Respitory Rate 18 04/02/2014 [facility] Systolic (mm Hg) 141 04/02/2014 [facility] Heart Rate 54 04/02/2014 [facility] Height 177.8 cm 04/02/2014 [facility] BMI Calculated 23.01 04/02/2014 [facility] Weight 72.727 04/02/2014 [facility] Heart Rate 71 04/02/2014 [facility] Respitory Rate 20 04/02/2014 [facility] Temperature Oral (F) 98.1 F 04/02/2014 [facility] Systolic (mm Hg) 123 04/02/2014 [facility] Diastolic (mm Hg) 65 04/02/2014 [facility] Encounters Location Location Details Encounter Type Encounter Number Reason For Visit Attending Provider ADM Date DC Date Status Source [facility] [id number] [facility] Vanessa Jonathan 04/02/2014 04/02/2014 [facility] [id number] Man Bustillo 07/05/2018 07/05/2018 [facility] Procedures Procedure Code Date Perfomer Comments Source Back fusion [id number] [facility] [employer] [facility] st CABG x 4 - Coronary artery bypass grafts x 4 [id number] [facility] Cholecystectomy [id number] [facility] Assessment and Plan No Data Provided for This Section Plan of Care No Data Provided for This Section Social History Social History Date Source Social History TypeResponse Smoking Status Never smoker; Ready to change: No; Concerns about tobacco use in household: No; Exposure to Tobacco Smoke None; Cigarette Smoking Last 365 Days No; Reg Smoking Cessation Counseling No entered on: 07/04/18 07/04/2018 [facility] Family History No Data Provided for This Section Advance Directives No Data Provided for This Section Functional Status No Data Provided for This Section
--- NOTE | 2020-01-02 04:23 | Emergency Department Note ---
History of Present Illnes History of Present Illness Chief Complaint: Respiratory History of Present Illness This is a 84 year old male with PMH brought from home for evaluation of dyspnea . Patient unable to provide meaningful history, history obtained from EMS who stated that called EMS for "COVID-like symptoms. Per EMS , patient was having tactile fevers for the past few days with decreased appetite and weakness. Patient with noted elevated BP when seen at bedside. 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 Any updates have been documented here. 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 CHOLESTEROL PTSD/DEPRESSION DEMENTIA Past Surgical History: Cholecysctectomy, CABG, PCI, Pacer/AICD Other Surgery: QUADRUPLE BYPASS BACK AICD Social History Smoking Cessation: Never Smoker Alcohol Use: None Any Illegal Drug Use: No Other Last Tetanus: UTD Review of Systems ROS Narrative Unable to obtain ROS: altered mental status Review of Systems Constitutional: Reports weakness Respiratory: Reports dyspnea Physical Exam Related Data Allergies: Coded Allergies: No Known Allergies (Unverified , 12/08/16) Triage Vital Signs Vital Signs Date Time Temp Pulse Resp B/P (MAP) Pulse Ox O2 Delivery O2 Flow Rate FiO2 01/02/20 04:20 99.3 84 20 221/110 100 Nasal Cannula 2.0 Vital signs reviewed: Yes Physical Exam CONSTITUTIONAL Constitutional: Present morbidly obese, Present distressed, Present ill appearing HENT HENT: Present normocephalic, Present atraumatic, Present oropharynx clear/moist, Present nose normal HENT L/R: Present left ext ear normal, Present right ext ear normal EYES Eyes: Reports PERRL, Reports conjunctivae normal NECK Neck: Present ROM normal PULMONARY Pulmonary: Present effort normal, Present breath sounds normal CARDIOVASCULAR Cardiovascular: Present regular rhythm, Present heart sounds normal, Present capillary refill normal, Present normal rate GASTROINTESTINAL Abdominal: Present soft, Present nontender, Present bowel sounds normal GENITOURINARY Genitourinary: Present exam deferred SKIN Skin: Present warm, Present dry MUSCULOSKELETAL Musculoskeletal: Present edema NEUROLOGICAL Neurological: Present weakness PSYCHOLOGICAL Psychological: Present mood/affect normal, Present judgement normal Results Laboratory Lab results reviewed: Yes Laboratory comments Laboratory Tests Test 01/02/20 05:08 01/02/20 04:28 01/02/20 04:03 Urine Color Yellow (YELLOW) Urine Clarity Clear (CLEAR) Urine pH 6.5 (5 - 7) Urine Specific [place] 1.025 (1.010-1.025) Urine Protein 2+ (NEGATIVE) Urine Glucose (UA) Negative (NEGATIVE) Urine Ketones 1+ (NEGATIVE) Urine Blood Trace (NEGATIVE) Urine Nitrite Negative (NEGATIVE) Urine Bilirubin Small (NEGATIVE) Urine Urobilinogen 1 mg/dL (0.2 - 1) Urine Leukocyte Esterase Negative (NEGATIVE) Urine RBC 6-10 /HPF (0-5) Urine WBC 6-10 /HPF (0-5) Urine Epithelial Cells Few /LPF (NONE) Urine Bacteria Rare /HPF (NONE) Arterial Blood pH 7.40 (7.35-7.45) Arterial Blood Partial Pressure CO2 37 mmHg (35-45) Arterial Blood Partial Pressure O2 138 mmHg (80-105) Arterial Blood HCO3 23 mmol/L (22-26) Arterial Blood Total CO2 24 Arterial Blood Oxygen Saturation 99.0 % (95-98) Arterial Blood Base Excess -2.0 mmol/L (-2 - 3) FiO2 28 % White Blood Count 6.29 x10e3/uL (4.8-10.8) Red Blood Count 5.13 x10e6/uL (4.3-5.7) Hemoglobin 14.2 g/dL (14.0-18.0) Hematocrit 41.4 % (38.2-49.6) Mean Corpuscular Volume 80.7 fL (81-99) Mean Corpuscular Hemoglobin 27.7 pg (28-32) Mean Corpuscular Hemoglobin Concent 34.3 g/dL (31-35) Red Cell Distribution Width 14.1 % (11.7-14.4) Platelet Count 167 x10e3/uL (140-360) Neutrophils (%) (Auto) 80.5 % (38.7-80.0) Lymphocytes (%) (Auto) 9.9 % (18.0-39.1) Monocytes (%) (Auto) 8.9 % (4.4-11.3) Eosinophils (%) (Auto) 0.0 % (0.0-6.0) Basophils (%) (Auto) 0.2 % (0.0-1.0) Neutrophils # (Auto) 5.1 (2.1-6.9) Lymphocytes # (Auto) 0.6 (1.0-3.2) Monocytes # (Auto) 0.6 (0.2-0.8) Eosinophils # (Auto) 0.0 (0.0-0.4) Basophils # (Auto) 0.0 (0.0-0.1) Absolute Immature Granulocyte (auto 0.03 x10e3/uL (0-0.1) Sodium Level 141 mmol/L (136-145) Potassium Level 3.7 mmol/L (3.5-5.1) Chloride Level 107 mmol/L (98-107) Carbon Dioxide Level 21 mmol/L (22-29) Anion Gap 16.7 mmol/L (8-16) Blood Urea Nitrogen 17 mg/dL (7-26) Creatinine 1.05 mg/dL (0.72-1.25) Estimat Glomerular Filtration Rate > 60 ML/MIN (60-) BUN/Creatinine Ratio 16 (6-25) Glucose Level 103 mg/dL (74-118) Lactic Acid Level 1.1 mmol/L (0.5-2.0) Calcium Level 9.8 mg/dL (8.4-10.2) Total Bilirubin 1.1 mg/dL (0.2-1.2) Aspartate Amino Transf (AST/SGOT) 20 IU/L (5-34) Alanine Aminotransferase (ALT/SGPT) 14 IU/L (0-55) Alkaline Phosphatase 65 IU/L (40-150) Creatine Kinase 66 IU/L (30-200) Creatine Kinase MB 2.30 ng/mL (0-5.0) Troponin I 0.044 ng/mL (0-0.300) B-Type Natriuretic Peptide 208.6 pg/mL (0-100) Total Protein 7.0 g/dL (6.5-8.1) Albumin 4.0 g/dL (3.5-5.0) Globulin 3.0 g/dL (2.3-3.5) Albumin/Globulin Ratio 1.3 (0.8-2.0) Imaging Imaging results reviewed: Yes Impressions [place] [address] Patient Name: JOHN STERN MR #: [id number] : 1935 Age/Sex: 84/M Req #: [id number] Adm Physician: Ordered by: DIONTE DOYLE DO Report #: [id number] Location: ER Room/Bed: Procedure: [id number] CT/CT BRAIN WO Exam Date: Exam Time: REPORT STATUS: Signed CT BRAIN WO HISTORY: Altered mental status COMPARISON: Head CT 12/08/2019 Technique: Noncontrast axial scans were obtained from skull base to the vertex. Coronal and sagittal reconstructions obtained from the axial data. One or more of the following dose reduction techniques were used: Automated exposure control, adjustment of the mA and/or kV according to patient size, and/or utilization of iterative reconstruction technique. DISCUSSION: Scalp/Skull: Unremarkable. Brain sulci: Mildly prominent. Ventricles: Compensatory dilatation. Extra-axial spaces: No masses or fluid collections. Carotid siphon calcifications are present. Parenchyma: Moderate bilateral deep white matter hypodensity is likely chronic microvascular ischemic change. Punctate calcification in the left superior parietal lobule may be from remote infection. Otherwise, no masses, hemorrhage, or large vascular territory acute infarct. Dural sinuses: No abnormal densities. Sellar/Suprasellar region: Intact. Skull base: Intact. Incidental findings: Left ocular lens replacement. IMPRESSION: 1. No acute intracranial abnormalities. 2. Moderate supratentorial chronic microvascular ischemic change. Generalized cerebral volume loss. 3. Punctate left parietal calcification from remote infection. Signed by: Dr. Prasad Melvin M.D. on 01/02/2020 6:20 AM Dictated By: PRASAD MELVIN MD 9 Transcribed By: TANIKA on 01/02/20619 COPY TO: DIONTE DOYLE DO~ Procedures 12 Lead ECG Interpretation ECG Interpretation : ECG: ECG 1 Care Rep: Interpreted by ED physician Date: Jan 02, 2020 Time: 04:32 Prior ECG tracings: reviewed Rate: normal BPM: 83 QRS axis: left ST segments normal: Yes T waves normal: Yes Other findings: PRWP Q waves: I Clinical Impression: non-specific ECG ABG Interpretation ABG Results: ABG 1 Interpretation: normal Assessment & Plan Medical Decision Making MDM 84 yom presents with weakness Diff Dx : [employer] Brain injury (CVA, SAH, SDH) Sepsis, anemia, PNA, UTI, electrolyte abl, and COVID-19 infection Reassessment Reassessment case d/w with Dr Bridget Tanner PCP. Patients code status is DNR. NO respiratory or circulatory distress. Questionable utility of supplemental oxygen for patient but [employer] contacted for home oxygen if needed. Admission deferred at this time. Plan to discharge to home for continued hospice care Assessment & Plan Final Impression: (1) Hypertensive urgency (2) Weakness Depart Disposition: HOME, SELF-FCI Meds Reported Medications Levetiracetam (LEVETIRACETAM) 500 Mg Tablet, 1000 MG PO BID 05/10/18 Gabapentin (GABAPENTIN) 100 Mg Capsule, 100 MG PO BID 05/10/18 Sennosides/Docusate Sodium (SENEXON-S TABLET) 1 Each Tablet, 1 TAB PO DAILY 12/08/16 Prazosin Hcl (PRAZOSIN HCL) 2 Mg Capsule, 2 MG PO DAILY 12/08/16 Quetiapine Fumarate (QUETIAPINE FUMARATE) 25 Mg Tablet, 50 MG PO DAILY 12/08/16 Sertraline Hcl (SERTRALINE HCL) 50 Mg Tablet, 50 MG PO DAILY, #30 TAB 12/08/16 Atorvastatin Calcium (ATORVASTATIN CALCIUM) 20 Mg Tablet, 40 MG PO HS, TAB 11/29/14 Amlodipine Besylate (AMLODIPINE BESYLATE) 5 Mg Tablet, 5 MG PO DAILY, #30 TAB 11/27/14 Clopidogrel Bisulfate (CLOPIDOGREL) 75 Mg Tablet, 75 MG PO DAILY, #30 TAB 09/10/14 Aspirin (ASPIRIN) 81 Mg Tab.chew, 81 MG PO DAILY 09/10/14 DIONTE DOYLE DO Jan 02, 2020 04:23
[2020-01-02 04:31] LABS: ALANINE AMINOTRANSFERASE 14 IU/L (0-55); ALBUMIN/GLOBULIN RATIO 1.3 (0.8-2.0); ALKALINE PHOSPHATASE 65 IU/L (40-150); ANION GAP 16.7 mmol/L (8-16); BLOOD UREA NITROGEN 17 mg/dL (7-26); BUN/CREATININE RATIO 16 (6-25); CALCIUM 9.8 mg/dL (8.4-10.2); CARBON DIOXIDE 21 mmol/L (22-29); CHLORIDE 107 mmol/L (98-107); CREATINE KINASE 66 IU/L (30-200); CREATININE, SERUM 1.05 mg/dL (0.72-1.25); EST GLOMERULAR FILTRATION RATE > 60 ML/MIN (60-); GLUCOSE 103 mg/dL (74-118); POTASSIUM 3.7 mmol/L (3.5-5.1); SODIUM 141 mmol/L (136-145)
[2020-01-02] MEDS ORDERED: HYDRALAZINE HCL 20 MG/ML VIAL IV STA (04:31)
[2020-01-02 04:34] LABS: B-TYPE NATRIURETIC PEPTIDE2 208.6 pg/mL (0-100)
[2020-01-02 04:43] LABS: ABG HCO3 23 mmol/L (22-26); ABG PCO2 37 mmHg (35-45); ABG PO2 138 mmHg (80-105); ABG TCO2 24
[2020-01-02 05:17] LABS: BILIRUBIN,URINE SMALL (NEGATIVE); CLARITY,URINE CLEAR (CLEAR); COLOR,URINE YELLOW (YELLOW); KETONES,URINE 1+ (NEGATIVE); LEUKOCYTE ESTERASE ,URINE NEGATIVE (NEGATIVE); NITRITE,URINE NEGATIVE (NEGATIVE); PROTEIN,URINE DIPSTICK 2+ (NEGATIVE); URINE UROBILINOGEN 1 mg/dL (0.2 - 1)
[2020-01-02 05:30] LABS: BACTERIA,URINE RARE /HPF; EPITHELIAL CELLS,URINE FEW /LPF
--- NOTE | 2020-01-02 06:23 | Diagnostic Imaging Report ---
CT BRAIN WO HISTORY: Altered mental status COMPARISON: Head CT 12/08/2019 Technique: Noncontrast axial scans were obtained from skull base to the vertex. Coronal and sagittal reconstructions obtained from the axial data. One or more of the following dose reduction techniques were used: Automated exposure control, adjustment of the mA and/or kV according to patient size, and/or utilization of iterative reconstruction technique. DISCUSSION: Scalp/Skull: Unremarkable. Brain sulci: Mildly prominent. Ventricles: Compensatory dilatation. Extra-axial spaces: No masses or fluid collections. Carotid siphon calcifications are present. Parenchyma: Moderate bilateral deep white matter hypodensity is likely chronic microvascular ischemic change. Punctate calcification in the left superior parietal lobule may be from remote infection. Otherwise, no masses, hemorrhage, or large vascular territory acute infarct. Dural sinuses: No abnormal densities. Sellar/Suprasellar region: Intact. Skull base: Intact. Incidental findings: Left ocular lens replacement. IMPRESSION: 1. No acute intracranial abnormalities. 2. Moderate supratentorial chronic microvascular ischemic change. Generalized cerebral volume loss. 3. Punctate left parietal calcification from remote infection. Signed by: Dr. Prasad Melvin M.D. on 01/02/2020 6:20 AM
--- NOTE | 2020-01-02 07:14 | Diagnostic Imaging Report ---
EXAMINATION: CHEST SINGLE (PORTABLE) 1 view INDICATION: Shortness of breath and weakness. COMPARISON: Radiograph dated 03/15/2018. FINDINGS: Left chest wall ICD with leads projecting over the right atrium and right ventricle. CABG changes with sternotomy wires. The heart is mildly enlarged. The pulmonary vasculature is within normal limits. Patchy left basilar opacity. The right lung is clear. IMPRESSION: Left basilar opacity could represent atelectasis or pneumonia.. Signed by: Donny Lee MD on 01/02/2020 7:11 AM
[2020-01-02 08:02] VITALS: BP 62/87
--- NOTE | 2020-01-02 08:14 | NUR ---
45 MIN ETA [facility]. CALLED AND VERIFIED ADDRESS, PHONE NUMBER AND ETA AND PT ARRIVAL WITH THUY AT [phone].
--- NOTE | 2020-01-02 08:30 | NUR ---
PT IS [facility], NOTIFIED COMPANY THEY WILL MEET AT HOME PT IS BEING PICKED UP FROM ED AT 9AM
== END 2020-01-02 09:23 | disposition home or self-care (01) ==
LOC: ER 04:15
DX: I16.0 Hypertensive urgency (principal); R53.1 Weakness; F03.90 Unspecified dementia, unspecified severity, without behavioral disturbance, psychotic disturbance, mood disturbance, and anxiety; I10 Essential (primary) hypertension; J44.9 Chronic obstructive pulmonary disease, unspecified; I50.9 Heart failure, unspecified; I25.10 Atherosclerotic heart disease of native coronary artery without angina pectoris; M21.371 Foot drop, right foot; Z11.59 Encounter for screening for other viral diseases; I25.2 Old myocardial infarction; Z95.1 Presence of aortocoronary bypass graft
CPT/HCPCS: 36415; 36600; 70450; 71045; 80053; 81001; 82550; 82553; 82805; 83605; 83880; 84484; 85025; 87040; 99285; J0360; U0002